=== PATIENT | male | born 1950 | race African-American/Black ===

== ENCOUNTER 2020-04-16 15:35 | Inpatient (IN) | payer OTHER, MEDICARE ==
[~2020-04-16 15:35] MED LIST: Iopamidol-370 76% 500 ML 1 ML ONE; Sodium Bicarb 50 MEQ/50 ML Abboject 8.4% SYRINGE ONE
[2020-04-16] MEDS ORDERED: Cefepime 2 GM VIAL ONE (15:57)
[2020-04-16 16:00] LABS: Actual Bicarbonate (HCO3a) 41.9 mEq/L (22-28); Analyzer IN Cardio ER; Base Excess (BEa) 6.8 mEq/L (-2.0 to +3.0); Calcium, Ionized (arterial) 1.26 mmol/L (1.12-1.30); Carboxyhemoglobin (COHb) 0.9 gm% (0.0-3.0); Hemoglobin (Hb) 14.5 g/dL (14.0-18.0); O2 Tension (PaO2), arterial 77.1 mmHg (> 80.0); Potassium - ABG Lab 4.04 mmol/L (3.70-5.30)
[2020-04-16 16:16] LABS: #Basophils 0.1 thou/uL (0.0-0.2); #Lymphocytes 1.4 thou/uL (1.20-3.40); #Monocytes 0.8 thou/uL (0.11-0.59); #Neutrophils 6.1 thou/uL (1.40-6.50); %Basophils 1.6 % (0.0-1.0); %Eosinophils 0.1 % (0.0-10.0); %Lymphocytes 16.8 % (21.0-51.0); %Monocytes 9.5 % (0.0-10.0); %Neutrophils 71.9 % (42.0-75.0); Hemoglobin 14.3 g/dL (14.0-18.0); Mean Corpuscular HGB CONC 30.2 g/dL (32.0-36.0); Mean Corpuscular Hemoglobin 29.4 pg (27.0-31.0); Mean Corpuscular Volume 97.2 fL (78.0-98.0); Mean Platelet Volume 10.4 fL (7.4-10.4); Platelet Count 194 thou/uL (130-400); RBC Distribution Width 12.4 % (11.5-14.5); Red Blood Cell (RBC) Count 4.88 mill/uL (4.70-6.10); White Blood Cell (WBC) Count 8.5 thou/uL (4.8-10.8)
[2020-04-16 16:24] LABS: Prothrombin Time 13.5 sec (12.0-14.7)
--- NOTE | 2020-04-16 16:24 | RAD ---
Chest one view HISTORY: Altered mental status. FINDINGS: Cardiac silhouette is magnified by projection. Pulmonary vasculature is unremarkable. Patient is slightly rotated leftward. Oval density projecting over the left apex correlates with the first costochondral junction. No confluent airspace consolidation or evidence of pneumothorax. IMPRESSION : No abnormalities are demonstrated.
[2020-04-16] MEDS ORDERED: Ketamine 50 MG/ML (10ML VIAL) ONE (16:25)
[2020-04-16] MEDS ORDERED: risperiDONE 1 MG TAB ONE (16:25)
[2020-04-16 16:26] LABS: D-Dimer Test 0.5 *mcg/mL (0.27-0.43)
[2020-04-16] MEDS ORDERED: Rocuronium Bromide 10 MG/ML (10ML VIAL) ONE ×2 (16:26→16:30)
[2020-04-16] MEDS ORDERED: Norepinephrine 8 MG/0.9% NS 250 ML ONE ×2 (16:26→16:46)
[2020-04-16] MEDS ORDERED: EPINEPHrine 1 MG/10 ML Abboject SYRINGE ONE ×2 (16:28→16:29)
[2020-04-16] MEDS ORDERED: Rocuronium Bromide 50 MG/5 ML VIAL ONE (16:28)
[2020-04-16 16:31] LABS: Acetaminophen Less than 6.0 mcg/mL (10.0-30.0); Alcohol Less than 10 mg/dL (Less than 10); Magnesium 1.9 mg/dL (1.6-2.6); Salicylate Less than 8.0 mg/dL (15.0-30.0)
[2020-04-16 16:33] LABS: ALT (SGPT) 31 U/L (8-55); AST (SGOT) 38 U/L (5-34); Albumin 4.1 g/dL (3.5-5.0); Alkaline Phosphatase 57 U/L (40-110); BUN (Urea Nitrogen) 22 mg/dL (8.4-25.7); Bilirubin, Total 0.9 mg/dL (0.2-1.2); Calc. Creatinine Clearance 0 mL/min (70-130); Calcium 9.5 mg/dL (7.8-10.44); Estimated GFR-MDRD Greater than 90; Globulin 2.8 g/dL (2.4-3.5); Glucose 129 mg/dL (70-105); Lipase 50 U/L (8-78); Protein, Total 6.9 g/dL (6.0-8.3)
[2020-04-16 16:42] LABS: Anion Gap 15 mmol/L (10-20); Carbon Dioxide 39 mmol/L (22-29); Chloride 90 mmol/L (98-107); Potassium 4.1 mmol/L (3.5-5.1); Sodium 140 mmol/L (136-145)
[2020-04-16] MEDS ORDERED: Fentanyl 100 MCG/2 ML VIAL ONE (16:42)
[2020-04-16] MEDS ORDERED: fentaNYL Citrate/PF 2,000 MCG in Sodium Chloride 0.9% 60 ML IV SCH (16:51)
[2020-04-16 17:01] LABS: CO2 Tension 138.3 mmHg (35.0-45.0); Puncture Site RRAD
[2020-04-16 17:04] LABS: Bilirubin Moderate (Negative); Blood, Urine Moderate (Negative); Glucose, Urine (Dipstick) Negative (Negative); Ketone, Urine 15 mg/dL (Negative); Leukocyte Negative (Negative); Nitrite Negative (Negative); Protein, Urine (Dipstick) 100 mg/dL (Neg-Trace); Urobilinogen 0.2 mg/dL (Less than 2); pH, Urine 5.5 (5.0-9.0)
[2020-04-16 17:06] LABS: CKMB 29.8 ng/mL (0-6.6)
[2020-04-16 17:10] LABS: Clarity Hazy (Clear)
[2020-04-16 17:12] LABS: Specific Gravity, Urine 1.027 (1.002-1.036)
[2020-04-16 17:13] LABS: Bacteria/HPF Rare-Few HPF (None Seen); Squamous Epithelial 0-3 HPF (0-3); WBC/HPF 0-3 HPF (0-3)
[2020-04-16] MEDS ORDERED: Vancomycin 1 GM/200 ML BAG ONE (17:20)
[2020-04-16 17:28] LABS: Amphetamine Not Detected (NotDetected); Barbiturates Screen Not Detected (NotDetected); Benzodiazepine Screen Not Detected (NotDetected); Cocaine Metabolite Screen Not Detected (NotDetected); Medtox Control Line Valid? VALID (VALID); Medtox Reader # READER 4; Methadone Not Detected (NotDetected); Methamphetamine Not Detected (NotDetected); Opiate Screen Not Detected (NotDetected); Oxycodone Screen Not Detected (NotDetected); Phencyclidine (PCP) Not Detected (NotDetected); THC/Cannabinoid Screen Not Detected (NotDetected); Tricyclic Screen Not Detected (NotDetected)
[2020-04-16 18:47] LABS: SARS-CoV-2 NAA Rapid Test Not Detected (NotDetected)
--- NOTE | 2020-04-16 18:54 | CT ---
CT PULMONARY ANGIOGRAM WITH IV CONTRAST AND 3-D POSTPROCESSING: HISTORY:Altered mental status, hypotension, hypercapnic FINDINGS: There is good contrast opacification of the pulmonary arterial vasculature without filling defects to suggest pulmonary embolism. The thoracic aorta is well opacified without aneurysm or dissection. No pleural or pericardial effusions are seen. There are endotracheal and nasogastric tubes in place. No pneumothoraces, focal areas of consolidation or lung nodules are noted. There are minimal dependen t changes at the posterior lung bases. There are degenerative changes in the spine. IMPRESSION: No CT evidence of pulmonary embolism.
--- NOTE | 2020-04-16 18:54 | RAD ---
XR Chest 1 View Portable HISTORY: Respiratory failure COMPARISON: Earlier exam of same date FINDINGS: There is been interval placement of an endotracheal tube with tip at the level of the clavi cular heads. A nasogastric tube is seen with tip in the stomach. Tip of a right internal jugular central venous catheter is in the projection of the right atrium. The heart size normal. No lobar consolidation, pneumothoraces or pleural effusions are identified. Th ere are degenerative changes in the spine. IMPRESSION: No radiographic evidence of acute cardiopulmonary process.
[2020-04-16] MEDS ORDERED: Lorazepam 2 MG/ML VIAL ONE ×2 (18:55→21:31)
[2020-04-16] MEDS ORDERED: Dexamethasone 10 MG/ML VIAL ONE (18:55)
--- NOTE | 2020-04-16 19:03 | CT ---
CTA HEAD WITH AND WITHOUT CONTRAST: 04/16/20 Axial tomograms obtained through the head without IV contrast. This is followed by CTA of the head [facility] angio protocol with multiplanar reconstruction and 3D postprocessing. INDICATION: Altered mental status. CT HEAD WITHOUT CONTRAST: Ventricles have normal size and position. There is no evidence of intracranial mass, hemorrhage or in farct. Sinuses and mastoids are clear. IMPRESSION: No acute finding. CTA HEAD: The intracranial internal carotid arteries are patent. Anterior cerebral arteries are patent. Middle cerebral arteries appear patent and symmetric. Basilar arteries patent. Posterior cerebral arteries a re patent and symmetric. The visualized vertebral arteries are patent. IMPRESSION: Unremarkable CTA of head. CTA NECK: INDICATIONS: Altered mental status. Axial tomograms obtained with multiplanar reconstruction and 3D postprocessing. FINDINGS: Common carotid arteries are patent and symmetric. Carotid bifurcation is patent with minimal atherosclerotic change. There is no evidence of internal c arotid artery stenosis. Vertebral arteries are patent and symmetric. Soft tissues reveal mildly heterogeneous and enlarged thyroid gland. There are secretions seen in the posterior oropharynx and hypopharynx surrounding the NG tube. IMPRESSION: Unremarkable CTA neck. POS: AGW
[2020-04-16 19:22] LABS: Actual Bicarbonate (HCO3a) 32.6 mEq/L (22-28); Analyzer IN Cardio ER; Base Excess (BEa) 12.6 mEq/L (-2.0 to +3.0); CO2 Tension 27.9 mmHg (35.0-45.0); Calcium, Ionized (arterial) 1.04 mmol/L (1.12-1.30); Carboxyhemoglobin (COHb) 0.4 gm% (0.0-3.0); Hemoglobin (Hb) 13.7 g/dL (14.0-18.0); Potassium - ABG Lab 3.42 mmol/L (3.70-5.30)
[2020-04-16 19:25] LABS: O2 Tension (PaO2), arterial 55.3 mmHg (> 80.0); pH, Arterial 7.69 (7.35-7.45)
[2020-04-16 19:26] LABS: ALV-art Gradient 266.325 (0-20); Puncture Site RR
--- NOTE | 2020-04-16 19:38 | PDOC.HHP ---
Hospitalist HPI - History of Present Illness unresponsive+ History of Present Illness: This is a 69 year old male patient with past medical history of diabetes who presented to the ER after being found unresponsive. The patient was at work when he was found slumped over in his chair. They called the ambulance. When EMS arrived, the patient was found to have an oxygen saturation of 70% on room air and blood pressure of 100 systolic. EMS tried to convince the patient to come to the ER for over two hours and he refused multiple times. Eventually he agreed and was placed on non-rebreather. When the patient came to the ER, apparently he was talking some and following some commands and his oxygen saturation was 100% on nasal cannula. ABG showed pH 7.1, and pCO2 of 130. He was placed on BIPAP but quickly decompensated and his blood pressure dropped to 60/40. He was given 30 cc/kg bolus of fluids, 2L bolus of normal saline, multiple boluses of epinephrine (total of 200 mg), 1 amp of bicarb, 10 of IV decadron and was eventually intubated. Labs showed normal lactate, indeterminate troponin, normal TSH, normal UA. Chest X ray was normal, CTA showed no PE, CTA head/neck showed no stenosis. COVID swab negative Attempted calling family for further history but no response. Hospitalist ROS - Review of Systems ROS unobtainable: due to endotracheal tube Hospitalist History - Past Medical History Endocrine: reports: Diabetes - Past Surgical History Other Surgical History: unknown - Family History Other Family History: unknown - Social History Smoking Status: Smoker, status unknown - Exam General - other findings: intubated, sedated Eye: PERRL, anicteric sclera ENT: normocephalic atraumatic, no oropharyngeal lesions Neck: no JVD Heart: RRR, no murmur, no gallops, no rubs Respiratory: no rales, no ronchi Respiratory - other findings: dimnished breath sounds bilaterally Gastrointestinal: soft, non-tender, non-distended, normal bowel sounds Extremities: no cyanosis, no clubbing, 2+ LE edema Skin: normal turgor, no lesions, no rashes Skin - other findings: warm extremities Neurological: cranial nerve grossly intact, normal sensation to touch, no focal deficits, no new deficit Musculoskeletal: normal tone, normal strength, no muscle wasting Psychiatric: normal affect, normal behavior, A&O x 3 Hospitalist Results - Labs Result Diagrams: 04/16/20 16:02 04/16/20 16:02 Lab results: WBC 8.5 thou/uL (4.8-10.8) 04/16/20 16:02 Hgb 14.3 g/dL (14.0-18.0) 04/16/20 16:02 Hct 47.4 % (42.0-52.0) 04/16/20 16:02 MCV 97.2 fL (78.0-98.0) 04/16/20 16:02 Plt Count 194 thou/uL (130-400) 04/16/20 16:02 Neutrophils % 71.9 % (42.0-75.0) 04/16/20 16:02 ABG pH 7.69 (7.35-7.45) H* 04/16/20 19:20 ABG pCO2 27.9 mmHg (35.0-45.0) L 04/16/20 19: ABG pO2 55.3 mmHg (> 80.0) L* 04/16/20 19:20 Sodium 140 mmol/L (136-145) 04/16/20 16:02 Potassium 4.1 mmol/L (3.5-5.1) 04/16/20 16:02 Chloride 90 mmol/L (98-107) L 04/16/20 16:02 Carbon Dioxide 39 mmol/L (22-29) H 04/16/20 16:02 BUN 22 mg/dL (8.4-25.7) 04/16/20 16:02 Creatinine 0.82 mg/dL (0.7-1.3) 04/16/20 16:02 Glucose 129 mg/dL (70-105) H 04/16/20 16:02 Lactic Acid 1.5 mmol/L (0.5-2.2) 04/16/20 16:02 Calcium 9.5 mg/dL (7.8-10.44) 04/16/20 16:02 Total Bilirubin 0.9 mg/dL (0.2-1.2) 04/16/20 16:02 AST 38 U/L (5-34) H 04/16/20 16:02 ALT 31 U/L (8-55) 04/16/20 16:02 Alkaline Phosphatase 57 U/L (40-110) 04/16/20 16:02 CK-MB (CK-2) 29.8 ng/mL (0-6.6) H* 04/16/20 16:02 Troponin I 0.040 ng/mL (< 0.028) H 04/16/20 16:02 B-Natriuretic Peptide 34.7 pg/mL (0-100) 04/16/20 16:02 Serum Total Protein 6.9 g/dL (6.0-8.3) 04/16/20 16:02 Albumin 4.1 g/dL (3.5-5.0) 04/16/20 16:02 Lipase 50 U/L (8-78) 04/16/20 16:02 Urine Ketones 15 mg/dL (Negative) A 04/16/20 16:23 Urine Blood Moderate (Negative) A 04/16/20 16:23 Urine Nitrite Negative (Negative) 04/16/20 16:23 Ur Leukocyte Esterase Negative (Negative) 04/16/20 16:23 Urine RBC 4-6 HPF (0-3) A 04/16/20 16:23 Urine WBC 0-3 HPF (0-3) 04/16/20 16:23 Ur Squamous Epith Cells 0-3 HPF (0-3) 04/16/20 16:23 Urine Bacteria Rare-Few HPF (None Seen) 04/16/20 16:23 - EKG Interpretation EKG: sinus tachycardia, bundle branch block Hospitalist H&P A/P - Plan Plan: This is a 69 year old male with unknown past medical history except diabetes who was brought in after he was found slumped over at work. He was found to be hypercapneic and hypotensive and required intubation Acute hypoxic/hypercapneic failure - possibly septic shock unknown source vs undiagnosed COPD exacerbation vs NSTEMI - patient was found slumped at work. Found to have pH 7.1, PCO2 130. He was hypotensive as well. He is s/p intubation - blood cultures sent, continue vanc and zosyn empirically - add hydrocortisone 50 mg IV q6 - repeat ABG shows pH 7.69, PCO2 of 27. Respiratory therapist has decreased rate on the vent from 24 to 13. Plan to repeat ABG in two hours Acute encephalopathy - likely due to acidosis - check CT head - CTA head and neck unresponsive Possible NSTEMI - troponin elevated at 0.040, with CKMB 29. Will continue to trend troponin - obtain ECHO - I will order one dose aspirin and statin - consider cardiology consult Type II diabetes - fingersticks q6 hours - insulin sliding scale DVT prophylaxis: enoxaparin (assuming normal CT head) Code status: presume full code
[2020-04-16] MEDS ORDERED: Aspirin 300 MG Suppository PR SCH (20:00)
[2020-04-16] MEDS ORDERED: Norepinephrine 8 MG/0.9% NS 250 ML IVPB SCH (20:00)
[2020-04-16] MEDS ORDERED: Dextrose 5% in Water 1,000 ML IV PRN (20:03)
[2020-04-16] MEDS ORDERED: Dextrose 50% Abboject 50 ML SYRINGE SLOW IVP PRN (20:03)
[2020-04-16] MEDS ORDERED: Vancomycin 1 GM in Premix Bag 1 BAG IVPB SCH (21:00)
[2020-04-16] MEDS ORDERED: DISCONTINUE PREVIOUS NARCOTIC PAIN MEDICATIONS AND BENZODIAZEPINES FS SCH (21:36)
[2020-04-16] MEDS ORDERED: Lorazepam 2 MG/ML VIAL SLOW IVP PRN (21:36)
[2020-04-16] MEDS ORDERED: Propofol BOLUS 1,000 MG/100 ML VIAL IV PRN (21:36)
[2020-04-16] MEDS ORDERED: Fentanyl BOLUS 250 ML IVPB PRN (21:36)
[2020-04-16] MEDS ORDERED: Morphine 2 MG/ML VIAL SLOW IVP PRN (21:36)
[2020-04-16] MEDS: Sodium Chloride 0.9% 1,000 ML IV SCH (21:52)
[2020-04-16] MEDS: Hydrocortisone Sod Succ/PF 100 mg/2 ml Vial IVP SCH (22:14)
[2020-04-16] MEDS: Atorvastatin Calcium 40 MG TAB PO SCH (22:15)
[2020-04-16 23:04] LABS: Actual Bicarbonate (HCO3a) 26.2 mEq/L (22-28); Base Excess (BEa) 5.4 mEq/L (-2.0 to +3.0); CO2 Tension 27.9 mmHg (35.0-45.0); Calcium, Ionized (arterial) 1.11 mmol/L (1.12-1.30); Carboxyhemoglobin (COHb) 0.2 gm% (0.0-3.0); O2 Tension (PaO2), arterial 120.5 mmHg (> 80.0); Potassium - ABG Lab 3.63 mmol/L (3.70-5.30)
[2020-04-16 23:05] LABS: ALV-art Gradient 201.125 (0-20); Puncture Site RR; pH, Arterial 7.59 (7.35-7.45)
[2020-04-16 23:08] LABS: Troponin I 0.035 ng/mL (< 0.028)
[2020-04-17] MEDS: Piperacillin/Tazobactam 3.375 GM in Sodium Chloride 0.9% 100 ML IVPB SCH ×5 (00:12→23:13)
[2020-04-17] MEDS ORDERED: fentaNYL Citrate/PF 2,000 MCG in Sodium Chloride 0.9% 60 ML IV SCH (00:30)
[2020-04-17] MEDS: Hydrocortisone Sod Succ/PF 100 mg/2 ml Vial IVP SCH ×4 (02:20→21:31)
[2020-04-17] MEDS: Vancomycin 1 GM in Premix Bag 1 BAG IVPB SCH ×2 (04:17→17:27)
[2020-04-17 04:30] LABS: Hemoglobin 12.8 g/dL (14.0-18.0); Mean Corpuscular HGB CONC 31.2 g/dL (32.0-36.0); Mean Corpuscular Hemoglobin 29.7 pg (27.0-31.0); Mean Platelet Volume 9.6 fL (7.4-10.4); Platelet Count 182 thou/uL (130-400); RBC Distribution Width 12.4 % (11.5-14.5); Red Blood Cell (RBC) Count 4.32 mill/uL (4.70-6.10); White Blood Cell (WBC) Count 8.9 thou/uL (4.8-10.8)
[2020-04-17 04:52] LABS: Anion Gap 18 mmol/L (10-20); BUN (Urea Nitrogen) 18 mg/dL (8.4-25.7); Calc. Creatinine Clearance 89 mL/min (70-130); Calcium 8.6 mg/dL (7.8-10.44); Carbon Dioxide 32 mmol/L (23-31); Chloride 97 mmol/L (98-107); Estimated GFR-MDRD Greater than 90; Glucose 153 mg/dL (80-115); Potassium 3.8 mmol/L (3.5-5.1); Sodium 143 mmol/L (136-145)
[2020-04-17 07:14] LABS: Actual Bicarbonate (HCO3a) 29.5 mEq/L (22-28); Analyzer IN Cardio ER; CO2 Tension 38.6 mmHg (35.0-45.0); Calcium, Ionized (arterial) 1.12 mmol/L (1.12-1.30); Carboxyhemoglobin (COHb) 0.2 gm% (0.0-3.0); Hemoglobin (Hb) 13.1 g/dL (14.0-18.0); O2 Tension (PaO2), arterial 86.6 mmHg (> 80.0); Potassium - ABG Lab 3.54 mmol/L (3.70-5.30)
[2020-04-17 07:15] LABS: Puncture Site RRA
[2020-04-17 08:39] LABS: Actual Bicarbonate (HCO3a) 28.8 mEq/L (22-28); Analyzer IN Cardio ER; Base Excess (BEa) 5.4 mEq/L (-2.0 to +3.0); CO2 Tension 37.8 mmHg (35.0-45.0); Calcium, Ionized (arterial) 1.11 mmol/L (1.12-1.30); Carboxyhemoglobin (COHb) 0.3 gm% (0.0-3.0); Hemoglobin (Hb) 13.3 g/dL (14.0-18.0); O2 Tension (PaO2), arterial 89.9 mmHg (> 80.0); Potassium - ABG Lab 3.63 mmol/L (3.70-5.30)
[2020-04-17 08:53] LABS: Puncture Site RRA
[2020-04-17] MEDS ORDERED: Prevnar 13-Val Conj/PF 0.5 ML SYRINGE IM ONE (09:00)
[2020-04-17] MEDS: Sodium Chloride 0.9% 1,000 ML IV SCH ×2 (09:42→16:42)
--- NOTE | 2020-04-17 14:13 | PDOC.HOSPP ---
- Subjective Encounter Date: 04/17/20 Encounter Time: 11:30 Subjective: Patient was asleep upon entering the room and during physical exam. He was able to be aroused after the exam, and he answered yes or no questions by nodding or shaking his head. He seems to be alert and oriented. He denies any pain or discomfort, even with the endotracheal tube in place. Per nursing staff, they placed him on CPAP trial but he desaturated and was too drowsy so it was decided no to extubate. Patient's blood pressure also dropped to 90 systolic when levofed was reduced. Patient states he has never smoked. Has no history of lung or heart problems to his knowledge According to the , the patient was having progressive troubles with movement and appetite. He has left sided foot drop, which often causes him to fall, so he has been using a walker to get around. He additionally has "weak hands," has lost 28 lbs since October, and has 4 broken vertebrae. Over the last month, the patient has also experienced SOB, TIBURCIO, weight loss, chest congestion, abdominal pain, constipation, and one episode of vomiting on Tuesday (04/15). When asked if there was anything that precipitated these symptoms, Ms. Davison stated that one month ago the patient moved in with her. This move has made his drive to work longer, since he is now living in [place] instead of [place]. She also stated that the patient's HTN medications were changed from amlodipine to metoprolol on (04/10). The morning of Mr. Davison's hospitalization, Ms. Davison's son noticed that "something was off" with the patient. Ms. Davison received a call later in the day from the patient' s work stating that he was unresponsive and slumped over his desk. At this time , EMS was called. There was no report of fever, night sweats, acid reflux, cough, and hemoptysis. His only previous history was diabetes. He never smoked. He has had chronic back pain. Meds prior to admission: -ASA 81 mg PO daily, Lisinopril 40 mg PO, Metformin 1000 mg BID, Tizanidine 1 tab at night, Rosuvastatin, unknown dosage Fx: significant for prostatic, colonic, and pancreatic CA,brother from [place] in his 40s, unsure which type - Objective Vital Signs & Weight: Vital Signs (12 hours) Temp Pulse Resp BP Pulse Ox 04/17/20 12:00 10 L 04/17/20 11:03 87 124/70 04/17/20 11:00 98.1 F 04/17/20 10:00 8 L 04/17/20 08:28 81 121/73 04/17/20 08:00 10 L 100 04/17/20 06:00 12 04/17/20 04:00 98.9 F 10 L 04/17/20 03:33 78 Weight Admit Weight 151 lb 3.794 oz Weight 151 lb 3.794 oz Most Recent Monitor Data Heart Rate from ECG 79 NIBP 116/68 NIBP BP-Mean 74 Respiration from ECG 10 SpO2 99 I&O: 04/16/20 04/17/20 04/18/20 06:59 06:59 06:59 Intake Total 1305.3 100 Output Total 575 120 Balance 730.3 -20 Result Diagrams: 04/17/20 04:17 04/17/20 04:17 Additional Labs: Accuchecks 04/17/20 04/17/20 04/16/20 12:35 06:05 23:58 POC Glucose 168 H 151 H 123 H 04/16/20 04/16/20 22:40 20:44 POC Glucose 142 H 121 H Hospitalist ROS - Review of Systems ROS unobtainable: due to endotracheal tube Constitutional: reports: other (denies pain) Cardiovascular: denies: chest pain - Medication Medications: Active Medications Generic Name Dose Route Start Last Admin Trade Name Freq PRN Reason Stop Dose Admin Atorvastatin Calcium 40 mg 04/16/20 21:00 04/16/20 22:15 Lipitor PO 40 mg HS JUAN Administration Hydrocortisone Sodium Succinate 50 mg 04/16/20 20:00 04/17/20 14:10 Solu-Cortef IVP 50 mg 0200,0800,1400,2000 JUAN Administration Piperacillin Sod/Tazobactam 100 mls @ 200 mls/hr 04/16/20 23:59 04/17/20 12: 40 Sod 3.375 gm/ Sodium Chloride IVPB 100 mls Q6HR JUAN Administration Vancomycin HCl 1 gm/ Device 200 mls @ 200 mls/hr 04/17/20 05:00 08/06/20 04: 17 IVPB 200 mls 0500,1700 JUAN Administration Sodium Chloride 1,000 mls @ 100 mls/hr 04/16/20 20:00 04/17/20 09:42 Normal Saline 0.9% IV 1,000 mls .Q10H JUAN Administration Norepinephrine Bitartrate 250 mls @ 0 mls/hr 04/16/20 20:00 04/17/20 06:58 Levophed IVPB 250 mls INF JUAN Administration Protocol Titrate - Exam General Appearance: NAD General - other findings: intubated. He follows all commands Eye: anicteric sclera ENT: normocephalic atraumatic (intubated) Neck: supple, symmetric Heart: RRR, no murmur, no gallops, no rubs Respiratory: CTAB, no wheezes, no rales, no ronchi, normal chest expansion, no tachypnea Gastrointestinal: soft, non-distended Extremities: no cyanosis, no clubbing, 2+ LE edema (bilaterally in lower extremities) Skin: normal turgor, no lesions, no rashes Neurological: cranial nerve grossly intact, normal sensation to touch, no focal deficits, no new deficit Psychiatric - other findings: Seemed to understand that he was hospitalized Hosp A/P - Plan Echo - mild mitral regurg, mild tricuspid regurg, normal EF at 60-65% This is a 69 year old male with past medical history of diabetes, who presented to the ER with acute onset respiatory failure ECHO: EF 60-65%, mild MR, mild Tr Chest X ray: normal CTA chest: no PE CTA head/neck: no stenosis CT brain: no hemorrhage This is a 69 year old male with unknown past medical history except diabetes who was brought in after he was found slumped over at work. He was found to be hypercapneic and hypotensive and required intubation Acute hypoxic/hypercapneic failure - possibly septic shock unknown source vs undiagnosed COPD exacerbation vs neuromuscular disease/autoimmune disease - patient was found slumped at work. Found to have pH 7.1, PCO2 130. He was hypotensive as well. He is s/p intubation - blood cultures sent, continue vanc and zosyn empirically - continue hydrocortisone 50 mg IV q6 - repeat ABG shows pH 7.69, PCO2 of 27. Respiratory therapist has decreased rate again on the ventilator. Pulm consult appreciated. - I will obtain an PITO level given his history of joint pain and swelling. Acute encephalopathy - likely due to acidosis - CT head normal , CTA head and neck no stenosis Metabolic alkalosis - possibly from dehydration vs bicarb received in the ER - continue IV fluids Possible NSTEMI - troponin elevated at 0.040, with CKMB 29. Will continue to trend troponin -ECHO unremarkable - continue aspirin and statin Type II diabetes - fingersticks q6 hours - insulin sliding scale Weight loss - CT chest shows no evidence of cance - obtain CT abdomen when stable Anemia - Hb 12. Likely dilutional from fluids
[2020-04-17 16:24] LABS: Vancomycin, Trough 11.1 ug/mL
[2020-04-17] MEDS: Propofol 1,000 MG/100 ML VIAL IV PRN (16:43)
--- NOTE | 2020-04-17 17:05 | PQF ---
Q55 2019 [facility] Updated: CLINICAL DOCUMENTATION CLARIFICATION FORM: Dear Dr. JUAN C MCDANIEL Date: 04-17-20 Please exercise your independent, professional judgment in responding to the clarification form. Clinical indicators are provided on the bottom of this form for your review. Please check appropriate box(es) to clarify if the following diagnosis has been ruled in our ruled out: SEPTIC SHOCK [ X ] Ruled in diagnosis [ ] Continue to treat [ ] Resolved [ ] Ruled out diagnosis [ ] Other diagnosis [ ] Unable to determine In addition, please specify: Present on Admission (POA): [X ] Yes [ ] No [ ] Unable to determine For continuity of documentation, please document condition throughout progress notes and discharge summary. Thank You. To be completed by CDI/Coding staff for physician review: CLINICAL INDICATORS - SIGNS / SYMPTOMS / LABS / RESULTS AND LOCATION IN MR: ER DX: ALTERED MENTAL STATUS, ELEVATED TROPONIN, HYPERCAPNIC RESPIRATORY FAILURE, HYPOXIC RESPIRATORY FAILURE, METABOLIC ACIDOSIS, RESPIRATORY ACIDOSIS WITH METABOLIC ALKALOSIS, SEPSIS, SEPTIC SHOCK H&P 04-16-20: ACUTE HYPOXIC/HYPERCAPNIC FAILURE-POSSIBLE SEPTIC SHOCK UNK SOURCE VS UNDX COPD EXACERBATION VS NSTEMI, ACUTE ENCEPHALOPATHY, POSSIBLE NSTEMI PULSE ER: 105, 131, 111, 109, 110 BP ER: 63/39, 62/35, 77/49, 73/51, 57/36, 65/41, 64/40 RR ER: 24, 24, 23, BIPAP, VENTILATOR RISK FACTORS / RESULTS AND LOCATION IN MR: ER NOTES 04-16-20: PT BECAME APNEIC WAS INTUBATED FOR APNEA AND DURING THAT TIME HAD SEVERAL EPISODES OF HYPOTENSION, TREATED WITH EPINEPHRINE AND BICARB, 2L OF FLUIDS WERE GIVEN USED TO PRESERVE BLOOD PRESSURE ER DX: ALTERED MENTAL STATUS, ELEVATED TROPONIN, HYPERCAPNIC RESPIRATORY FAILURE, HYPOXIC RESPIRATORY FAILURE, METABOLIC ACIDOSIS, RESPIRATORY ACIDOSIS WITH METABOLIC ALKALOSIS, SEPSIS, SEPTIC SHOCK TREATMENTS / RESULTS AND LOCATION IN MR: ER NOTES 04-16-20: NS IVF, VANCOMYCIN IV, CEFEPIME IV CDS Signature: Nikole Simmons Phone #: [phone] Date: 04-17-20 This is a permanent part of the Medical Record [facility]
--- NOTE | 2020-04-17 17:25 | PQF ---
Q22 2018 [facility] Updated: CLINICAL DOCUMENTATION CLARIFICATION FORM: Dear Dr. JUAN C MCDANIEL Date: 04-17-20 Please exercise your independent, professional judgment in responding to the clarification form. Clinical indicators are provided on the bottom of this form for your review. Please check appropriate box(es): [ X ] Encephalopathy: Type: [ X ] Acute [ ] Subacute [ ] Chronic Etiology: [ ] Metabolic [ ] Toxic [ ] Hypoxic [ ] Septic [ ] Other (please specify) from stroke and tumor [ ] Transient Alteration of Awareness [ ] Other diagnosis [ ] Unable to determine In addition, please specify: Present on Admission (POA): [ X ] Yes [ ] No [ ] Unable to determine For continuity of documentation, please document condition throughout progress notes and discharge summary. Thank You. To be completed by CDI/Coding staff for physician review: CLINICAL INDICATORS - SIGNS / SYMPTOMS / LABS / RESULTS AND LOCATION IN EMR: H&P 04-16-20: ACUTE HYPOXIC/HYPERCAPNIC FAILURE- POSSIBLE SEPTIC SHOCK UNKNOWN SOURCE VS UNDIAGNOSED COPD EXACERBATION ACUTE ENCEPHALOPATHY- LIKELY DUE TO ACIDOSIS, POSSIBLE NSTEMI, DM 2 RISK FACTORS / RESULTS AND LOCATION IN EMR: H&P 04-16-20: ACUTE HYPOXIC/HYPERCAPNIC FAILURE- POSSIBLE SEPTIC SHOCK UNKNOWN SOURCE VS UNDIAGNOSED COPD EXACERBATION ACUTE ENCEPHALOPATHY- LIKELY DUE TO ACIDOSIS, POSSIBLE NSTEMI, DM 2 TREATMENTS / RESULTS AND LOCATION IN EMR: ER NOTES 04-16-20: NS IVF, VANCOMYCIN IV, CEFEPIME IV CDS Signature: Nikole Simmons Phone #: [phone] Date/Time: 04-17-20 This is a permanent part of the Medical Record [facility]
[2020-04-17] MEDS: Atorvastatin Calcium 40 MG TAB PO SCH (21:31)
--- NOTE | 2020-04-18 01:59 | CON ---
DATE OF CONSULTATION: 04/17/2020 HISTORY OF PRESENT ILLNESS: Sudeep Davison is a 69-year-old male, who presented to the emergency room, poorly responsive with hypercarbia and subsequently was intubated. I was consulted to assist in his management. He is unable to give a history. There is no past medical history in the medical records. He reportedly has a history of diabetes. FAMILY HISTORY: Unknown. SOCIAL HISTORY: Unknown. REVIEW OF SYSTEMS: Not obtainable. PHYSICAL EXAMINATION: GENERAL: He will awaken. It is interesting to note that when he is asleep, he has David-Malik respiratory pattern (his echocardiogram was normal today). VITAL SIGNS: Heart rates in the 70s, respiratory rates in the teens, his FiO2 is 21%, and blood pressure 108/62. HEENT: Pupils are equal. Sclerae are anicteric. NECK: Supple. LUNGS: Remarkable, but no wheezes or crackles. HEART: Regular rhythm. No S3. ABDOMEN: Soft and nontender. EXTREMITIES: Without clubbing, cyanosis, or edema. LABORATORY DATA: White count 8.9, hemoglobin 12.8, platelets 182,000. Electrolytes are unremarkable. Bicarb on presentation was 39, suggesting that he has been hypoventilating for a while. His first blood gas showed a pH of 7.1, CO2 of 138 , PO2 of 77, again suggesting that he had been hypoventilating. He is not obese. IMPRESSION: Hypoventilation of unclear etiology. Most likely diagnosis would be that he would have severe obstructive lung disease, but he does not have any clinical evidence of that. His expiratory phase is short. He has David-Malik respiratory pattern, which would be an argument that he might have some cardiomyopathy, but the echocardiogram does not bear this out. CT scan does not show bullous disease. We have decreased his ventilatory support significantly during the day today. We probably should stay away from any long-acting sedative drugs in him and if sedatives are needed tonight, use Precedex. CRITICAL CARE TIME: 30 minutes. Job ID: [id number] MTDD
[2020-04-18] MEDS: Sodium Chloride 0.9% 1,000 ML IV SCH ×4 (02:00→17:00)
[2020-04-18] MEDS: Hydrocortisone Sod Succ/PF 100 mg/2 ml Vial IVP SCH ×4 (02:01→19:17)
[2020-04-18 04:31] LABS: Hemoglobin 11.4 g/dL (14.0-18.0); Mean Corpuscular HGB CONC 31.2 g/dL (32.0-36.0); Mean Corpuscular Hemoglobin 29.4 pg (27.0-31.0); Mean Corpuscular Volume 94.5 fL (78.0-98.0); Mean Platelet Volume 10.6 fL (7.4-10.4); Platelet Count 165 thou/uL (130-400); RBC Distribution Width 12.7 % (11.5-14.5); Red Blood Cell (RBC) Count 3.88 mill/uL (4.70-6.10); White Blood Cell (WBC) Count 14.4 thou/uL (4.8-10.8)
[2020-04-18] MEDS ORDERED: Vancomycin 1.5 GRAM/300 ML BAG 1.5 GM in Premix Bag 1 BAG IVPB SCH (05:00)
[2020-04-18 05:10] LABS: ALT (SGPT) 18 U/L (8-55); AST (SGOT) 18 U/L (5-34); Albumin 2.9 g/dL (3.4-4.8); Alkaline Phosphatase 40 U/L (40-110); Anion Gap 13 mmol/L (10-20); BUN (Urea Nitrogen) 15 mg/dL (8.4-25.7); Bilirubin, Total 0.9 mg/dL (0.2-1.2); Calc. Creatinine Clearance 85 mL/min (70-130); Calcium 7.9 mg/dL (7.8-10.44); Carbon Dioxide 34 mmol/L (23-31); Chloride 99 mmol/L (98-107); Estimated GFR-MDRD Greater than 90; Globulin 2.2 g/dL (2.4-3.5); Glucose 144 mg/dL (80-115); Potassium 2.8 mmol/L (3.5-5.1); Protein, Total 5.1 g/dL (5.8-8.1); Sodium 143 mmol/L (136-145)
[2020-04-18] MEDS: Piperacillin/Tazobactam 3.375 GM in Sodium Chloride 0.9% 100 ML IVPB SCH ×4 (05:25→23:22)
[2020-04-18] MEDS: Potassium Chloride 40 MEQ in Premix Bag 1 BAG IVPB SCH ×2 (05:25→08:30)
[2020-04-18] MEDS ORDERED: Electrolyte Replacement Protocol FS PRN (05:30)
[2020-04-18 05:54] LABS: Syphilis Antibody Nonreactive (Nonreactive); Syphilis Antibody Index 0.04 S/CO (<1.00 Non-Reactive)
[2020-04-18] MEDS ORDERED: Magnesium 2 GM/50 ML 2 GM in Premix Bag 1 BAG IVPB SCH (07:00)
[2020-04-18] MEDS: Propofol 1,000 MG/100 ML VIAL IV PRN ×2 (08:17→13:48)
--- NOTE | 2020-04-18 09:08 | PRG ---
DATE OF SERVICE: 04/18/2020 SUBJECTIVE: Sudeep Davison awakens quickly. OBJECTIVE: VITAL SIGNS: His heart rates in the 50s, blood pressure 109/65, and respiratory rates in the 20s. He was turned down to minimal ventilatory support with pressure support of 5, PEEP 5, and a rate of 4. He is examined multiple times early this morning. With time, his tidal volumes became smaller and smaller and his respiratory rate increased. His tidal volumes dropped to 125 to 100 mL with 5 of PEEP and 5 of pressure support. LUNGS: Clear. HEART: Regular rhythm. ABDOMEN: Soft. Turning back to a rate of 8, turned his pressure support back to 10. LABORATORY STUDIES: White count 14.4, hemoglobin 11.4, and platelets 165. Sodium 143, potassium 2.8, chloride 99, bicarb 34, BUN 15, and creatinine 0.84. There is no blood gas today. IMPRESSION AND PLAN: Respiratory failure ? secondary to neuromuscular problem ? myasthenia gravis. He does not have any lung disease. He has never been a smoker. Does not have a body habitus of somebody with obesity hypoventilation syndrome. There is no clear explanation for his hypoventilation other than perhaps neuromuscular cause. We will consult Neurology. His ejection fraction is normal. CRITICAL CARE TIME: 30 minutes. Job ID: [id number]
--- NOTE | 2020-04-18 12:51 | CON ---
NEUROLOGY CONSULTATION DATE OF CONSULTATION: 04/18/2020 REASON FOR CONSULTATION: Bilateral lower extremity weakness. HISTORY OF PRESENT ILLNESS: Mr. Davison is a 69-year-old male with medical history significant for diabetes, presented to the emergency room on 04/16/2020 with altered mental status. The patient was at work and was found slumped over his chair, and they called the ambulance and ecided to bring him to the emergency room for further evaluation. The patient was found to have an oxygen saturation of 70% on room air, and blood pressure was 100 systolic. The EMS tried to convince the patient to come to the emergency room for over 2 hours and he refused multiple times and eventually agreed and was placed on non-rebreather. When he arrived to the emergency room, he was following commands, and his oxygen was 100% on nasal cannula, but then his blood pressure dropped and he was eventually intubated. History was obtained from review of the medical records since the patient was intubated. There is a concern that has reported that he has bilateral lower extremity weakness since the last few weeks and is getting progressively worse, and he has difficulty in walking. Neurology was consulted for further evaluation. REVIEW OF SYSTEMS: Unobtainable due to endotracheal tube. PAST MEDICAL HISTORY: Diabetes. PAST SURGICAL HISTORY: No significant past surgical history. FAMILY HISTORY: No significant family history. SOCIAL HISTORY: Smoking; the patient is a smoker. There is no documented history of alcohol or illegal drug abuse. ALLERGIES: No known drug allergies PHYSICAL EXAMINATION: GENERAL: The patient was intubated and sedated. Sedation was turned off and then he was able to track and follow commands like squeezing fingers and he did track. CVS: Regular rate and rhythm. CHEST: Clear. ABDOMEN: Soft. NECK: Supple. EXTREMITIES: No cyanosis, but 2+ pitting edema in lower extremities. NEUROLOGIC: Mental status; the propofol was turned off for 20 minutes and he was awake. He nodded his head on yes and no questions. He was able to follow commands. Cranial nerves; pupils were 4 mm, round, and reactive to light. Face symmetric. Tongue midline. Moves neck in both directions. Extraocular movements intact. Hearing seems to be intact. Motor, muscle tone and bulk are normal. Moving all 4 extremities, upper extremities more than lower extremities. Strength 5/5 in the upper extremities, lower extremities 3+/5. Cerebellar did not cooperate with the exam. Gait deferred due to patient's safety reason. DATA REVIEWED: I reviewed the labs which were essentially unremarkable except EKG shows sinus tachycardia. ASSESSMENT AND PLAN: Mr. Sudeep Davison is a 69-year-old male who was brought for altered mental status His head CT was negative and CT of the head and neck was also negative. He came with respiratory failure, the exam is limited due to patient being on endotracheal tube. On limited exam, did not show any symptoms of myasthenia gravis. He is good strength in the upper extremities and no ptosis or bulbar weakness elicited on exam. . Lower extremity exam is also limited at this time. I would consider MRI of the thoracolumbar spine. Neuro checks every 4 hours. We will continue home medications. Continue medical management per primary team. We will continue to follow. He may need further work up as outpatient with EMG/NCS by outpatient neurologist if imaging is negative. Thank you for the consult. Job ID: [id number] MTDD
--- NOTE | 2020-04-18 13:30 | PDOC.HOSPP ---
- Subjective Encounter Date: 04/18/20 Encounter Time: 13:28 Subjective: THe patient is still intubated. He was not able to tolerate being weaned off the ventilator . His urine output is picking up . Neurology has been consulted today His levofed has been weaned off. He is still on IV fluids - Objective Vital Signs & Weight: Vital Signs (12 hours) Temp Pulse Resp BP Pulse Ox 04/18/20 12:00 8 L 04/18/20 11:00 97.8 F 04/18/20 10:54 54 L 107/68 04/18/20 10:00 11 L 04/18/20 08:11 57 L 109/65 04/18/20 08:00 12 04/18/20 07:44 99 04/18/20 07:00 97.9 F 04/18/20 06:00 8 L 04/18/20 04:00 98.9 F 8 L 04/18/20 03:27 86 04/18/20 02:00 12 Weight Admit Weight 151 lb 3.794 oz Weight 157 lb 13.616 oz Most Recent Monitor Data Heart Rate from ECG 56 NIBP 108/61 NIBP BP-Mean 74 Respiration from ECG 0 SpO2 100 I&O: 04/17/20 04/18/20 04/19/20 06:59 06:59 06:59 Intake Total 1305.3 3016.4 100 Output Total 575 1005 310 Balance 730.3 2011.4 -210 Result Diagrams: 04/18/20 03:30 04/18/20 03:30 Additional Labs: Accuchecks 04/18/20 04/18/20 04/17/20 12:50 00:32 16:06 POC Glucose 145 H 147 H 144 H Hospitalist ROS - Review of Systems ROS unobtainable: due to endotracheal tube - Medication Medications: Active Medications Generic Name Dose Route Start Last Admin Trade Name Freq PRN Reason Stop Dose Admin Atorvastatin Calcium 40 mg 04/16/20 21:00 04/17/20 21:31 Lipitor PO 40 mg HS JUAN Administration Hydrocortisone Sodium Succinate 50 mg 04/16/20 20:00 04/18/20 08:17 Solu-Cortef IVP 50 mg 0200,0800,1400,2000 JUAN Administration Piperacillin Sod/Tazobactam 100 mls @ 200 mls/hr 04/16/20 23:59 04/18/20 11: 20 Sod 3.375 gm/ Sodium Chloride IVPB 100 mls Q6HR JUAN Administration Sodium Chloride 1,000 mls @ 100 mls/hr 04/16/20 20:00 04/18/20 11:21 Normal Saline 0.9% IV 1,000 mls .Q10H JUAN Administration Norepinephrine Bitartrate 250 mls @ 0 mls/hr 04/16/20 20:00 04/17/20 06:58 Levophed IVPB 250 mls INF JUAN Administration Protocol Titrate Dexmedetomidine HCl 400 mcg/ 100 mls @ 0 mls/hr 04/17/20 17:15 04/18/20 01:08 Sodium Chloride IVPB 100 mls INF JUAN Administration Protocol Titrate Propofol 1,000 mg 04/16/20 21:36 04/18/20 08:17 Diprivan IV 05/16/20 21:36 1,000 mg INF PRN Administration TO ACHIEVE GOAL RASS Protocol Sodium Chloride 10 ml 04/18/20 09:00 04/18/20 08:17 Flush - Normal Saline IVF 10 ml Q12HR JUAN Administration - Exam General - other findings: intubated Eye: PERRL, anicteric sclera ENT: normocephalic atraumatic, no oropharyngeal lesions Neck: no JVD Heart: RRR, no murmur, no gallops, no rubs Respiratory: CTAB, no wheezes, no rales, no ronchi Gastrointestinal: soft, non-tender, non-distended, normal bowel sounds Extremities: no cyanosis, no clubbing, 2+ LE edema Skin: normal turgor, no lesions, no rashes Neurological: no new deficit Neurological - other findings: not following commands Hosp A/P - Plan Echo - mild mitral regurg, mild tricuspid regurg, normal EF at 60-65% This is a 69 year old male with past medical history of diabetes, who presented to the ER with acute onset respiatory failure ECHO: EF 60-65%, mild MR, mild Tr Chest X ray: normal CTA chest: no PE CTA head/neck: no stenosis CT brain: no hemorrhage This is a 69 year old male with unknown past medical history except diabetes who was brought in after he was found slumped over at work. He was found to be hypercapneic and hypotensive and required intubation Acute hypoxic/hypercapneic failure - possibly septic shock unknown source vs undiagnosed COPD exacerbation vs neuromuscular disease (like ALS?)/autoimmune disease - patient was found slumped at work. Found to have pH 7.1, PCO2 130. He was hypotensive as well. He is s/p intubation - blood cultures negative, UA+ but urine culture normal - discontinued vancomycin, continue zosyn. Continue IV steroids - syphilis negative. PITO pending. Neurology consulted due to possibility of neuromuscular disease or degenerative disease. Myasthenia antibodies ordered and pending Acute encephalopathy - likely due to acidosis - CT head normal , CTA head and neck no stenosis Metabolic alkalosis - improving, pH has improved to 7.5. Continue IV fluids Elevated troponin - troponin elevated at 0.040, with CKMB 29. Troponins downtrended -ECHO unremarkable - continue aspirin and statin Type II diabetes - fingersticks q6 hours - insulin sliding scale Weight loss - CT chest shows no evidence of cance - obtain CT abdomen when stable Anemia - Hb 12. Likely dilutional from fluids
[2020-04-18 13:51] LABS: Potassium 3.7 mmol/L (3.5-5.1)
[2020-04-18 15:04] LABS: ANA Symphony (Qualitative) Negative (Negative); ANA Symphony (Quantitative) 0.1 Ratio (< 0.7 Negative); dsDNA IgG Antibody Less than 0.5 IU/mL (<10 Negative)
[2020-04-18] MEDS: Atorvastatin Calcium 40 MG TAB PO SCH (20:33)
[2020-04-19] MEDS: Hydrocortisone Sod Succ/PF 100 mg/2 ml Vial IVP SCH ×4 (01:03→19:54)
[2020-04-19] MEDS: Propofol 1,000 MG/100 ML VIAL IV PRN ×3 (01:18→17:03)
[2020-04-19 04:29] LABS: Band 5 % (5-11); Hemoglobin 11.6 g/dL (14.0-18.0); Lymphocytes 4 % (21-51); MDiff Complete? YES; Mean Corpuscular HGB CONC 31.7 g/dL (32.0-36.0); Mean Corpuscular Hemoglobin 29.7 pg (27.0-31.0); Mean Corpuscular Volume 93.7 fL (78.0-98.0); Monocytes 6 % (0-10); Neutrophil 85 % (42-75); Platelet Count 154 thou/uL (130-400); Platelet Morphology Comment Appears Adequate; RBC Distribution Width 12.8 % (11.5-14.5); RBC Morphology Normal; Red Blood Cell (RBC) Count 3.92 mill/uL (4.70-6.10); White Blood Cell (WBC) Count 16.3 thou/uL (4.8-10.8)
[2020-04-19 04:40] LABS: Anion Gap 10 mmol/L (10-20); BUN (Urea Nitrogen) 16 mg/dL (8.4-25.7); Calc. Creatinine Clearance 95 mL/min (70-130); Calcium 8.1 mg/dL (7.8-10.44); Carbon Dioxide 34 mmol/L (23-31); Chloride 104 mmol/L (98-107); Estimated GFR-MDRD Greater than 90; Glucose 144 mg/dL (80-115); Potassium 3.2 mmol/L (3.5-5.1); Sodium 145 mmol/L (136-145)
[2020-04-19] MEDS: Piperacillin/Tazobactam 3.375 GM in Sodium Chloride 0.9% 100 ML IVPB SCH ×3 (05:55→17:03)
[2020-04-19] MEDS ORDERED: Potassium Chloride 40 MEQ in Premix Bag 1 BAG IVPB SCH (06:30)
--- NOTE | 2020-04-19 07:38 | RAD ---
Chest one view HISTORY: Dyspnea. Intubated. Follow-up. COMPARISON: 04/16/2020. Findings cardiac silhouette is magnified by projection and partially obscured by new opacity at the r ight base with the appearance of pleural fluid and infiltrate. Ill-defined parenchymal opacity also projects over the left lung base, partially obscuring the left h emidiaphragm. Mediastinum is midline. Lines and tubes are unchanged in position. Extrinsic artifact results in line running across the upper mediastinum. No evidence of pneumothorax. IMPRESSION : New dense right basilar infiltrate and right pleural fluid. New less severe left basilar infiltrate. Cause is not evident.
[2020-04-19] MEDS: Sodium Chloride 0.9% 1,000 ML IV SCH ×2 (10:25→17:03)
--- NOTE | 2020-04-19 10:53 | PRG ---
DATE OF SERVICE: 04/19/2020 SUBJECTIVE: Mr. Davison continues to receive ventilatory support. He was given a CPAP trial earlier this morning and went about an hour before he became tachypneic and had a fall in tidal volumes. This is improved compared to yesterday, although not yet to the point of significant weaning. He remains on low sedation. His family have been apprised of his current condition. PHYSICAL EXAMINATION: VITAL SIGNS: Blood pressure is 120/66, heart rate is 57, saturation 100%, although a few minutes ago, it did drift down into the low 90s. He has been on 21% oxygen by ventilator and I have increased him to 30%. I's and O's in the preceding 24 hours include input 3060, output 1330 reflecting a positive balance. Over his hospitalization, he is net positive over 4 L. GENERAL: He is intubated, poorly responsive, been in large part due to sedation. LUNGS: Hyperinflated without wheezing. HEART: Regular rate and rhythm. There is no murmur. ABDOMEN: Soft. He has no organomegaly. He has 1 to 2+ pitting pedal edema. LABORATORY DATA: White count 16.3, hemoglobin is 11.6, platelet count 154,000. He has 5% bands. Electrolytes include sodium 145, potassium 3.2, chloride 104, CO2 is 34, BUN 16, creatinine 0.7. Chest x-ray shows haziness in the right base, increased compared to before. There is also consolidation in the left base. He probably has at least a small right pleural effusion. IMPRESSION: Hypercapnic respiratory failure. He is a nonsmoker and does not have a history of chronic obstructive pulmonary disease. The possibility of a neuromuscular process has been entertained. A neurology consultation did not suggest myasthenia gravis and a MRI of the thoracolumbar spine has been requested. Further evaluation by Neurology is pending. PLAN: We will continue current supportive therapies. The patient did not have adequate time or efforts on CPAP trial today and attempted extubation is deferred for at least another 24 hours. MRI of the spine will need to be done at some point. His echocardiogram did not demonstrate significant valvular disease or evidence of low output state. Critical care today 30 minutes. Job ID: [id number]
[2020-04-19 11:53] LABS: Potassium 3.5 mmol/L (3.5-5.1)
[2020-04-19] MEDS ORDERED: Potassium Chloride 40 MEQ in Sodium Chloride 0.9% 250 ML 250 ML IV SCH (12:15)
--- NOTE | 2020-04-19 14:39 | PDOC.HOSPP ---
- Subjective Encounter Date: 04/19/20 non-verbal (Intubated) - Objective Vital Signs & Weight: Vital Signs (12 hours) Temp Pulse Resp BP Pulse Ox 04/19/20 14:00 10 L 04/19/20 12:00 15 04/19/20 11:07 76 107/58 L 04/19/20 11:00 98.7 F 04/19/20 10:00 13 04/19/20 08:38 79 126/71 04/19/20 08:00 24 H 04/19/20 07:32 15 100 04/19/20 07:00 98.8 F 04/19/20 06:00 13 04/19/20 04:00 97.6 F 14 04/19/20 03:12 90 98/62 Weight Admit Weight 151 lb 3.794 oz Weight 161 lb 6.054 oz Most Recent Monitor Data Heart Rate from ECG 57 NIBP 128/74 NIBP BP-Mean 91 Respiration from ECG 0 SpO2 100 I&O: 04/18/20 04/19/20 04/20/20 06:59 06:59 06:59 Intake Total 3016.4 3062.5 Output Total 1005 1330 145 Balance 2010.4 1732.5 -145 Result Diagrams: 04/19/20 03:30 04/19/20 11:29 Additional Labs: Accuchecks 04/19/20 04/18/20 04/18/20 10:19 22:10 16:12 POC Glucose 149 H 134 H 138 H Hospitalist ROS - Medication Medications: Active Medications Generic Name Dose Route Start Last Admin Trade Name Freq PRN Reason Stop Dose Admin Atorvastatin Calcium 40 mg 04/16/20 21:00 04/18/20 20:33 Lipitor PO 40 mg HS JUAN Administration Hydrocortisone Sodium Succinate 50 mg 04/16/20 20:00 04/19/20 14:22 Solu-Cortef IVP 50 mg 0200,0800,1400,2000 JUAN Administration Piperacillin Sod/Tazobactam 100 mls @ 200 mls/hr 04/16/20 23:59 04/19/20 11: 03 Sod 3.375 gm/ Sodium Chloride IVPB 100 mls Q6HR JUAN Administration Sodium Chloride 1,000 mls @ 100 mls/hr 04/16/20 20:00 04/19/20 10:25 Normal Saline 0.9% IV 1,000 mls .Q10H JUAN Administration Norepinephrine Bitartrate 250 mls @ 0 mls/hr 04/16/20 20:00 04/17/20 06:58 Levophed IVPB 250 mls INF JUAN Administration Protocol Titrate Dexmedetomidine HCl 400 mcg/ 100 mls @ 0 mls/hr 04/17/20 17:15 04/19/20 12:37 Sodium Chloride IVPB 100 mls INF JUAN Administration Protocol Titrate Potassium Chloride 40 meq/ 270 mls @ 67.5 mls/hr 04/19/20 12:15 04/19/20 12: 37 Sodium Chloride IV 04/19/20 17:00 270 mls NOW JUAN Administration Propofol 1,000 mg 04/16/20 21:36 04/19/20 10:25 Diprivan IV 05/16/20 21:36 1,000 mg INF PRN Administration TO ACHIEVE GOAL RASS Protocol Sodium Chloride 10 ml 04/18/20 09:00 04/19/20 08:43 Flush - Normal Saline IVF 10 ml Q12HR JUAN Administration - Exam ENT: normocephalic atraumatic Neck: supple Heart: RRR, normal peripheral pulses Respiratory - other findings: Bilateral lower lung crackles and diminished breath sounds on the right Hosp A/P - Plan 04/18: Acute hypoxic/hypercapneic failure - possibly septic shock unknown source vs undiagnosed COPD exacerbation vs neuromuscular disease (like ALS?)/autoimmune disease - patient was found slumped at work. Found to have pH 7.1, PCO2 130. He was hypotensive as well. He is s/p intubation - blood cultures negative, UA+ but urine culture normal - discontinued vancomycin, continue zosyn. Continue IV steroids - syphilis negative. PITO pending. Neurology consulted due to possibility of neuromuscular disease or degenerative disease. Myasthenia antibodies ordered and pending Acute encephalopathy - likely due to acidosis - CT head normal , CTA head and neck no stenosis Metabolic alkalosis - improving, pH has improved to 7.5. Continue IV fluids Elevated troponin - troponin elevated at 0.040, with CKMB 29. Troponins downtrended -ECHO unremarkable - continue aspirin and statin Type II diabetes - fingersticks q6 hours - insulin sliding scale Weight loss - CT chest shows no evidence of cance - obtain CT abdomen when stable Anemia - Hb 12. Likely dilutional from fluids 04/19: Chest x-ray showing new dense infiltrate and effusion in the right lung base. The patient remains on IV antibiotics as above. Continue vent management per pulmonology. Continue neurology work-up including MRIs.
[2020-04-19] MEDS: HumaLOG 300 UNITS/3 ML VIAL SC PRN ×2 (15:50→22:05)
[2020-04-19] MEDS: Atorvastatin Calcium 40 MG TAB PO SCH (20:20)
[2020-04-20] MEDS: Piperacillin/Tazobactam 3.375 GM in Sodium Chloride 0.9% 100 ML IVPB SCH ×4 (00:23→16:45)
[2020-04-20] MEDS: Hydrocortisone Sod Succ/PF 100 mg/2 ml Vial IVP SCH ×4 (01:15→20:57)
[2020-04-20] MEDS: Sodium Chloride 0.9% 1,000 ML IV SCH ×2 (03:51→13:47)
[2020-04-20 04:46] LABS: Anion Gap 9 mmol/L (10-20); BUN (Urea Nitrogen) 18 mg/dL (8.4-25.7); Calc. Creatinine Clearance 114 mL/min (70-130); Calcium 7.6 mg/dL (7.8-10.44); Carbon Dioxide 32 mmol/L (23-31); Chloride 107 mmol/L (98-107); Estimated GFR-MDRD Greater than 90; Glucose 213 mg/dL (80-115); Potassium 3.6 mmol/L (3.5-5.1); Sodium 144 mmol/L (136-145)
[2020-04-20 04:47] LABS: Basophilic Stippling SLIGHT = 1-2 cells (100X) (None Seen); Elliptocytes SLIGHT = 2-5 cells (100X) (0-1/hpf); Hemoglobin 10.9 g/dL (14.0-18.0); Lymphocytes 4 % (21-51); MDiff Complete? YES; Mean Corpuscular HGB CONC 31.1 g/dL (32.0-36.0); Mean Corpuscular Hemoglobin 29.5 pg (27.0-31.0); Mean Platelet Volume 10.7 fL (7.4-10.4); Monocytes 2 % (0-10); Neutrophil 94 % (42-75); Platelet Count 140 thou/uL (130-400); Platelet Morphology Comment Appears Adequate; RBC Distribution Width 12.7 % (11.5-14.5); White Blood Cell (WBC) Count 12.5 thou/uL (4.8-10.8)
[2020-04-20] MEDS: HumaLOG 300 UNITS/3 ML VIAL SC PRN ×2 (05:28→23:04)
[2020-04-20 07:30] LABS: Actual Bicarbonate (HCO3a) 30.2 mEq/L (22-28); Base Excess (BEa) 4.3 mEq/L (-2.0 to +3.0); Calcium, Ionized (arterial) 1.14 mmol/L (1.12-1.30); Carboxyhemoglobin (COHb) 0.3 gm% (0.0-3.0); Hemoglobin (Hb) 11.7 g/dL (14.0-18.0); O2 Tension (PaO2), arterial 94.8 mmHg (> 80.0); Potassium - ABG Lab 3.23 mmol/L (3.70-5.30); pH, Arterial 7.39 (7.35-7.45)
--- NOTE | 2020-04-20 07:52 | RAD ---
Chest one view HISTORY: Dyspnea. Intubated. Follow-up. COMPARISON: 04/19/2020. FINDINGS: Cardiac silhouette is magnified by projection. Pulmonary vasculature upper limits of normal and accentuated by shallow inspiration. Mediastinum is midline. Lines and tubes appear unchanged in position. Small amount of bilateral pleural fluid is again demonstrated. Right basilar infiltrate is less prono unced than on yesterday's exam. IMPRESSION : Slight interval improved aeration of the right lower lobe. Small bilateral pleural effusions persist.
--- NOTE | 2020-04-20 11:10 | PDOC.HOSPP ---
- Subjective Encounter Date: 04/20/20 Subjective: The patient remains on the vent, however, he is awake and able to respond to questions by moving his lips and head. According to the patient's family. He has been experiencing worsening weakness and back pain. He was offered back surgery in the past but the patient refused. He is currently wheelchair-bound. - Objective Vital Signs & Weight: Vital Signs (12 hours) Temp Pulse Resp BP Pulse Ox 04/20/20 08:00 25 H 04/20/20 07:46 88 109/62 04/20/20 07:34 22 H 100 04/20/20 06:00 8 L 04/20/20 04:00 98.6 F 8 L 04/20/20 02:50 48 L 126/68 04/20/20 02:00 8 L 04/20/20 00:00 99.2 F 8 L Weight Admit Weight 151 lb 3.794 oz Weight 168 lb 3.403 oz Most Recent Monitor Data Heart Rate from ECG 88 NIBP 104/58 NIBP BP-Mean 63 Respiration from ECG 0 SpO2 100 I&O: 04/19/20 04/20/20 04/21/20 06:59 06:59 06:59 Intake Total 3062.5 3809.8 Output Total 1330 770 45 Balance 1732.5 3039.8 -45 Result Diagrams: 04/20/20 03:30 04/20/20 03:30 Additional Labs: Accuchecks 04/20/20 04/19/20 04/19/20 09:54 22:09 15:51 POC Glucose 152 H 192 H 177 H Hospitalist ROS - Medication Medications: Active Medications Generic Name Dose Route Start Last Admin Trade Name Freq PRN Reason Stop Dose Admin Atorvastatin Calcium 40 mg 04/16/20 21:00 04/19/20 20:20 Lipitor PO 40 mg HS JUAN Administration Hydrocortisone Sodium Succinate 50 mg 04/16/20 20:00 04/20/20 08:02 Solu-Cortef IVP 50 mg 0200,0800,1400,2000 JUAN Administration Piperacillin Sod/Tazobactam 100 mls @ 200 mls/hr 04/16/20 23:59 04/20/20 05: 24 Sod 3.375 gm/ Sodium Chloride IVPB 100 mls Q6HR JUAN Administration Sodium Chloride 1,000 mls @ 100 mls/hr 04/16/20 20:00 04/20/20 03:51 Normal Saline 0.9% IV 1,000 mls .Q10H JUAN Administration Norepinephrine Bitartrate 250 mls @ 0 mls/hr 04/16/20 20:00 04/17/20 06:58 Levophed IVPB 250 mls INF JUAN Administration Protocol Titrate Dexmedetomidine HCl 400 mcg/ 100 mls @ 0 mls/hr 04/17/20 17:15 04/19/20 12:37 Sodium Chloride IVPB 100 mls INF JUAN Administration Protocol Titrate Insulin Human Lispro 0 units 04/16/20 20:03 04/20/20 05:28 Humalog SC 3 unit .MILD SLIDING SCALE PRN Administration Mild Correctional Scale Propofol 1,000 mg 04/16/20 21:36 04/19/20 17:03 Diprivan IV 05/16/20 21:36 1,000 mg INF PRN Administration TO ACHIEVE GOAL RASS Protocol Sodium Chloride 10 ml 04/18/20 09:00 04/20/20 08:02 Flush - Normal Saline IVF 10 ml Q12HR JUAN Administration - Exam General Appearance: awake alert ENT: normocephalic atraumatic Neck: supple, no JVD Respiratory: no tachypnea, normal percussion Extremities: no cyanosis, no clubbing Neurological - other findings: Able to move all his extremities Hosp A/P - Plan 04/18: Acute hypoxic/hypercapneic failure - possibly septic shock unknown source vs undiagnosed COPD exacerbation vs neuromuscular disease (like ALS?)/autoimmune disease - patient was found slumped at work. Found to have pH 7.1, PCO2 130. He was hypotensive as well. He is s/p intubation - blood cultures negative, UA+ but urine culture normal - discontinued vancomycin, continue zosyn. Continue IV steroids - syphilis negative. PITO pending. Neurology consulted due to possibility of neuromuscular disease or degenerative disease. Myasthenia antibodies ordered and pending Acute encephalopathy - likely due to acidosis - CT head normal , CTA head and neck no stenosis Metabolic alkalosis - improving, pH has improved to 7.5. Continue IV fluids Elevated troponin - troponin elevated at 0.040, with CKMB 29. Troponins downtrended -ECHO unremarkable - continue aspirin and statin Type II diabetes - fingersticks q6 hours - insulin sliding scale Weight loss - CT chest shows no evidence of cance - obtain CT abdomen when stable Anemia - Hb 12. Likely dilutional from fluids 04/19: Chest x-ray showing new dense infiltrate and effusion in the right lung base. The patient remains on IV antibiotics as above. Continue vent management per pulmonology. Continue neurology work-up including MRIs. 04/20: The patient is awake and able to move all his extremities. He shook his head no to the idea of trach or PEG or any procedures to his back. Since his problem appears to be chronic, and the patient does not wish for intervention, we will defer MRI of the spine. Continue vent management per pulmonology.
--- NOTE | 2020-04-20 18:17 | PRG ---
DATE OF SERVICE: 04/20/2020 SUBJECTIVE: Mr. Davison has done very well with CPAP trials. His spontaneous volumes are as much as 500. He is awake today and writing notes. He has communicated to the nurse that surgery has been discussed with him as an option; however, he has refused in the past. When asked about surgery now, he also adamantly refuses. I think it is appropriate that we try to extubate him and see how he does. He has communicated that he used to be on CPAP at home, although it is unclear whether he is actually taking it. We will use this to support him post extubation. PHYSICAL EXAMINATION: VITAL SIGNS: Blood pressure 125/74, heart rate 87, oxygen saturation has been 100. The patient is awake and able to follow commands. He is able to write and try to talk despite the endotracheal tube. He denies pain. NECK: He has no palpable adenopathy or JVD. LUNGS: Coarse rhonchi. HEART: Regular rate and rhythm. ABDOMEN: Soft. There is no organomegaly. EXTREMITIES: He has trace ankle edema. LABORATORY DATA: White count today 12,500, hemoglobin is 10.9 with hematocrit 35.1, and platelet count is 140,000. His chemistry includes sodium 144, potassium 3.6, chloride 107, bicarbonate 32, BUN 18, creatinine 0.6. His blood gas on CPAP includes pH 7.39, CO2 51, PO2 95, and bicarbonate 30. IMPRESSION: 1. 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 There is no evidence per Neurology that he has myasthenia. The patient seems to suggest that this has been a chronic process and likely confirmed by his home need for CPAP/BiPAP therapy. 2. Chronic back pain. The patient again is able to communicate by writing that he has refused surgery in the past and continues to do so now. PLAN: We will pursue extubation and use BiPAP as needed post extubation. Hopefully, we can get more information from him after he is extubated. We will encourage that he have a conversation with his family as to his wishes regarding end of life care so that this can be well defined and confirmed prior to the inevitable need. Critical care time, 30 minute. Job ID: [id number]
[2020-04-20] MEDS: Atorvastatin Calcium 40 MG TAB PO SCH ×2 (20:57→20:58)
[2020-04-21] MEDS: Piperacillin/Tazobactam 3.375 GM in Sodium Chloride 0.9% 100 ML IVPB SCH ×4 (00:37→17:14)
[2020-04-21] MEDS: Sodium Chloride 0.9% 1,000 ML IV SCH ×3 (01:43→20:35)
[2020-04-21] MEDS: Hydrocortisone Sod Succ/PF 100 mg/2 ml Vial IVP SCH ×2 (03:34→09:18)
[2020-04-21 05:08] LABS: Anion Gap 5 mmol/L (10-20); BUN (Urea Nitrogen) 15 mg/dL (8.4-25.7); Calc. Creatinine Clearance 136 mL/min (70-130); Calcium 7.7 mg/dL (7.8-10.44); Carbon Dioxide 37 mmol/L (23-31); Chloride 108 mmol/L (98-107); Estimated GFR-MDRD Greater than 90; Glucose 123 mg/dL (80-115); Potassium 3.3 mmol/L (3.5-5.1); Sodium 147 mmol/L (136-145)
[2020-04-21 05:30] LABS: Band 2 % (5-11); Hemoglobin 11.1 g/dL (14.0-18.0); Lymphocytes 5 % (21-51); MDiff Complete? YES; Mean Corpuscular HGB CONC 30.3 g/dL (32.0-36.0); Mean Corpuscular Hemoglobin 29.8 pg (27.0-31.0); Mean Corpuscular Volume 98.4 fL (78.0-98.0); Mean Platelet Volume 10.2 fL (7.4-10.4); Monocytes 5 % (0-10); Neutrophil 88 % (42-75); Platelet Count 147 thou/uL (130-400); Platelet Morphology Comment Appears Adequate; RBC Distribution Width 12.6 % (11.5-14.5); Red Blood Cell (RBC) Count 3.72 mill/uL (4.70-6.10); White Blood Cell (WBC) Count 12.7 thou/uL (4.8-10.8)
--- NOTE | 2020-04-21 07:52 | RAD ---
Chest one view HISTORY: Dyspnea. Follow-up. COMPARISON: 04/20/2020. FINDINGS: Cardiac silhouette is magnified by projection. Pulmonary vasculature remains upper limits o f normal. Mediastinum is midline. Endotracheal catheter and nasogastric tube no longer visible. Right internal jugular central venous catheter remains in place. Right hemidiaphragm now more obscured by ill-defined hazy parenchymal and pleural opacity. Opacity at the left base is stable. No evidence of pneumothorax. IMPRESSION : Interval reaccumulation of right pleural fluid and basilar atelectasis. Small amount of left pleural fluid appears stable. Interval removal of endotracheal catheter and nasogastric tube.
[2020-04-21 11:37] LABS: Potassium 3.8 mmol/L (3.5-5.1)
[2020-04-21] MEDS ORDERED: Enoxaparin Sodium 40 MG/0.4 ML SYRINGE SC SCH (14:00)
--- NOTE | 2020-04-21 15:12 | PDOC.HOSPP ---
- Subjective Encounter Date: 04/21/20 Subjective: Patient was extubated. He denies any shortness of breath today. - Objective Vital Signs & Weight: Vital Signs (12 hours) Temp Pulse Ox 04/21/20 15:00 98.1 F 04/21/20 11:00 97.9 F 04/21/20 07:06 100 04/21/20 07:00 97.9 F 04/21/20 04:00 97.8 F Weight Admit Weight 151 lb 3.794 oz Weight 167 lb 1.766 oz Most Recent Monitor Data Heart Rate from ECG 97 NIBP 131/72 NIBP BP-Mean 90 Respiration from ECG 12 SpO2 100 I&O: 04/20/20 04/21/20 04/22/20 06:59 06:59 06:59 Intake Total 3809.8 3081 820 Output Total 770 1007 350 Balance 3039.8 2074 470 Result Diagrams: 04/21/20 04:18 04/21/20 11:02 Additional Labs: Accuchecks 04/21/20 04/21/20 04/20/20 11:14 04:28 22:53 POC Glucose 183 H 115 H 169 H 04/20/20 16:47 POC Glucose 164 H Hospitalist ROS - Medication Medications: Active Medications Generic Name Dose Route Start Last Admin Trade Name Ruq PRN Reason Stop Dose Admin Atorvastatin Calcium 40 mg 04/16/20 21:00 04/20/20 20:58 Lipitor PO Not Given HS JUAN Enoxaparin Sodium 40 mg 04/21/20 14:00 04/21/20 15:09 Lovenox SC 04/21/20 16:00 40 mg NOW JUAN Administration Piperacillin Sod/Tazobactam 100 mls @ 200 mls/hr 04/16/20 23:59 04/21/20 11: 11 Sod 3.375 gm/ Sodium Chloride IVPB 100 mls Q6HR JUAN Administration Sodium Chloride 1,000 mls @ 100 mls/hr 04/16/20 20:00 04/21/20 09:22 Normal Saline 0.9% IV 1,000 mls .Q10H JUAN Administration Norepinephrine Bitartrate 250 mls @ 0 mls/hr 04/16/20 20:00 04/17/20 06:58 Levophed IVPB 250 mls INF JUAN Administration Protocol Titrate Dexmedetomidine HCl 400 mcg/ 100 mls @ 0 mls/hr 04/17/20 17:15 04/19/20 12:37 Sodium Chloride IVPB 100 mls INF JUAN Administration Protocol Titrate Insulin Human Lispro 0 units 04/16/20 20:03 04/20/20 23:04 Humalog SC 2 unit .MILD SLIDING SCALE PRN Administration Mild Correctional Scale Sodium Chloride 10 ml 04/18/20 09:00 04/21/20 09:19 Flush - Normal Saline IVF 10 ml Q12HR JUAN Administration - Exam General Appearance: awake alert ENT: normocephalic atraumatic Neck: supple, no JVD Heart: RRR Respiratory: normal chest expansion, no tachypnea Gastrointestinal: soft, non-tender Neurological: cranial nerve grossly intact Hosp A/P - Plan 04/18: Acute hypoxic/hypercapneic failure - possibly septic shock unknown source vs undiagnosed COPD exacerbation vs neuromuscular disease (like ALS?)/autoimmune disease - patient was found slumped at work. Found to have pH 7.1, PCO2 130. He was hypotensive as well. He is s/p intubation - blood cultures negative, UA+ but urine culture normal - discontinued vancomycin, continue zosyn. Continue IV steroids - syphilis negative. PITO pending. Neurology consulted due to possibility of neuromuscular disease or degenerative disease. Myasthenia antibodies ordered and pending Acute encephalopathy - likely due to acidosis - CT head normal , CTA head and neck no stenosis Metabolic alkalosis - improving, pH has improved to 7.5. Continue IV fluids Elevated troponin - troponin elevated at 0.040, with CKMB 29. Troponins downtrended -ECHO unremarkable - continue aspirin and statin Type II diabetes - fingersticks q6 hours - insulin sliding scale Weight loss - CT chest shows no evidence of cance - obtain CT abdomen when stable Anemia - Hb 12. Likely dilutional from fluids 04/19: Chest x-ray showing new dense infiltrate and effusion in the right lung base. The patient remains on IV antibiotics as above. Continue vent management per pulmonology. Continue neurology work-up including MRIs. 04/20: The patient is awake and able to move all his extremities. He shook his head no to the idea of trach or PEG or any procedures to his back. Since his problem appears to be chronic, and the patient does not wish for intervention, we will defer MRI of the spine. Continue vent management per pulmonology. 04/21: Patient was extubated and is currently stable. No evidence of respiratory distress. He can be downgraded to medical when okay by pulmonology. The patient is wheelchair-bound at home.
--- NOTE | 2020-04-21 21:02 | PRG ---
DATE OF SERVICE: OBJECTIVE: VITAL SIGNS: He is afebrile. Heart rates in the 90s, blood pressure 122/67. LUNGS: Clear. HEART: Regular rhythm. ABDOMEN: Soft. LABORATORY DATA: White count 12.7, hemoglobin 11.1, platelets 147. Sodium 147, potassium 3.3, chloride 108, bicarb 37, BUN 15, creatinine 0.56. IMPRESSION: Acute on chronic hypercarbic respiratory failure, the etiology of which is unclear. It seems unlikely that his cervical spine lesion i.e., from arthritis would create bilateral diaphragm dysfunction. Neurology does not feel he has myasthenia. We will continue to follow. Job ID: [id number]
[2020-04-21] MEDS: Atorvastatin Calcium 40 MG TAB PO SCH (21:32)
[2020-04-21] MEDS: Famotidine 20 MG TAB PO SCH (21:32)
[2020-04-22] MEDS: Piperacillin/Tazobactam 3.375 GM in Sodium Chloride 0.9% 100 ML IVPB SCH ×3 (00:14→12:48)
[2020-04-22 06:36] LABS: Hemoglobin 11.4 g/dL (14.0-18.0); Hypochromia SLIGHT = 6-15 cells (100X) (0-5/hpf); Lymphocytes 10 % (21-51); MDiff Complete? YES; Mean Corpuscular HGB CONC 29.7 g/dL (32.0-36.0); Mean Corpuscular Hemoglobin 29.5 pg (27.0-31.0); Mean Corpuscular Volume 99.5 fL (78.0-98.0); Mean Platelet Volume 9.6 fL (7.4-10.4); Monocytes 14 % (0-10); Neutrophil 76 % (42-75); Platelet Count 152 thou/uL (130-400); Platelet Morphology Comment Appears Adequate; RBC Distribution Width 12.3 % (11.5-14.5); Red Blood Cell (RBC) Count 3.87 mill/uL (4.70-6.10)
[2020-04-22 06:41] LABS: BUN (Urea Nitrogen) 12 mg/dL (8.4-25.7); Calc. Creatinine Clearance 143 mL/min (70-130); Calcium 7.5 mg/dL (7.8-10.44); Estimated GFR-MDRD Greater than 90; Glucose 115 mg/dL (80-115)
[2020-04-22 06:50] LABS: Anion Gap 9 mmol/L (10-20); Carbon Dioxide 35 mmol/L (23-31); Chloride 106 mmol/L (98-107); Potassium 3.3 mmol/L (3.5-5.1); Sodium 147 mmol/L (136-145)
[2020-04-22] MEDS: Sodium Chloride 0.9% 1,000 ML IV SCH ×2 (07:28→17:58)
[2020-04-22] MEDS ORDERED: Potassium Chloride 20 MEQ TAB PO SCH ×2 (07:45→14:30)
--- NOTE | 2020-04-22 07:47 | RAD ---
XR Chest 1 View Portable History: Ventilated patient Comparison: Radiograph prior day Findings: The right pleural effusion is now subpulmonic. Moderate left subpulmonic effusion. Right IJ central venous catheter tip projects over the right atrium. No pneumothorax. Impression: Moderate bilateral pleural effusions. Similar examination of the chest.
[2020-04-22] MEDS: Famotidine 20 MG TAB PO SCH ×2 (08:32→20:27)
[2020-04-22] MEDS: Enoxaparin Sodium 40 MG/0.4 ML SYRINGE SC SCH (08:33)
[2020-04-22] MEDS: predniSONE 20 MG TAB PO SCH (08:33)
--- NOTE | 2020-04-22 12:41 | PDOC.HOSPP ---
- Subjective Encounter Date: 04/22/20 Subjective: NEUROLOGY PROGRESS NOTE Patient now extubated and was able to participate with examination. - Objective Vital Signs & Weight: Vital Signs (12 hours) Temp 04/22/20 12:00 97.4 F L 04/22/20 07:00 97.6 F 04/22/20 04:00 97.7 F Weight Admit Weight 151 lb 3.794 oz Weight 167 lb 1.766 oz Most Recent Monitor Data Heart Rate from ECG 102 NIBP 119/70 NIBP BP-Mean 86 Respiration from ECG 3 SpO2 100 I&O: 04/21/20 04/22/20 04/23/20 06:59 06:59 06:59 Intake Total 3081 1673 Output Total 1007 723 Balance 2074 950 Result Diagrams: 04/22/20 06:00 04/22/20 06:00 Additional Labs: Accuchecks 04/22/20 04/22/20 04/21/20 05:53 00:00 21:35 POC Glucose 103 160 H 168 H 04/21/20 17:21 POC Glucose 162 H Radiology Reviewed by me: Yes EKG Reviewed by me: Yes Hospitalist ROS - Review of Systems Constitutional: denies: fever, chills, sweats, weakness, malaise, other Eyes: denies: pain, vision change, conjunctivae inflammation, eyelid inflammation, redness, other ENT: denies: ear pain, ear discharge, nose pain, nose discharge, nose congestion , mouth pain, mouth swelling, throat pain, throat swelling, other Respiratory: reports: shortness of breath. denies: cough, dry, hemoptysis, SOB with excertion, pleuritic pain, sputum, wheezing, other Cardiovascular: denies: chest pain, palpitations, orthopnea, paroxysmal noc. dyspnea, edema, light headedness, other Gastrointestinal: denies: nausea, vomiting, abdominal pain, diarrhea, constipation, melena, hematochezia, other Genitourinary: denies: dysuria, frequency, incontinence, hematuria, retention, other Musculoskeletal: denies: neck pain, shoulder pain, arm pain, back pain, hand pain, leg pain, foot pain, other Neurological: denies: weakness, numbness, incoordination, change in speech, confusion, seizures, other - Medication Medications: Active Medications Generic Name Dose Route Start Last Admin Trade Name Freq PRN Reason Stop Dose Admin Atorvastatin Calcium 40 mg 04/16/20 21:00 04/21/20 21:32 Lipitor PO 40 mg HS JUAN Administration Enoxaparin Sodium 40 mg 04/22/20 09:00 04/22/20 08:33 Lovenox SC 40 mg 0900 JUAN Administration Famotidine 20 mg 04/21/20 21:00 04/22/20 08:32 Pepcid PO 20 mg BID JUAN Administration Piperacillin Sod/Tazobactam 100 mls @ 200 mls/hr 04/16/20 23:59 04/22/20 05: 47 Sod 3.375 gm/ Sodium Chloride IVPB 100 mls Q6HR JUAN Administration Sodium Chloride 1,000 mls @ 100 mls/hr 04/16/20 20:00 04/22/20 07:28 Normal Saline 0.9% IV Not Given .Q10H JUAN Norepinephrine Bitartrate 250 mls @ 0 mls/hr 04/16/20 20:00 04/17/20 06:58 Levophed IVPB 250 mls INF JUAN Administration Protocol Titrate Dexmedetomidine HCl 400 mcg/ 100 mls @ 0 mls/hr 04/17/20 17:15 04/19/20 12:37 Sodium Chloride IVPB 100 mls INF JUAN Administration Protocol Titrate Insulin Human Lispro 0 units 04/16/20 20:03 04/20/20 23:04 Humalog SC 2 unit .MILD SLIDING SCALE PRN Administration Mild Correctional Scale Prednisone 10 mg 04/22/20 09:00 04/22/20 08:33 Prednisone PO 10 mg DAILY JUAN Administration Sodium Chloride 10 ml 04/18/20 09:00 04/22/20 08:33 Flush - Normal Saline IVF 10 ml Q12HR JUAN Administration - Exam General Appearance: awake alert Eye: PERRL ENT: normocephalic atraumatic Neck: supple Heart: RRR Respiratory: CTAB Gastrointestinal: soft Extremities: no cyanosis Skin: normal turgor Neurological: no focal deficits, no new deficit Musculoskeletal: normal tone Psychiatric: A&O x 3 Hosp A/P (1) Generalized weakness Code(s): R53.1 - WEAKNESS Status: Acute (2) Hypercapnic respiratory failure Code(s): J96.92 - RESPIRATORY FAILURE, UNSPECIFIED WITH HYPERCAPNIA Status: Acute - Plan PT/OT, speech therapy Consults: Hospice 69 year old consulted for lower extremity weakness and recent falls . There is also a concern about MG due to diaphragmatic weakness. Previous neuro exam was limited since he was intubated and propofol was turned off for half an hour. He was not able to provide a history. Patient denies progressive fatigue during the day, diplopia , or difficulty in swallowing. Neurological examination was negative for ptosis and was unable to elicit ptosis on examination. He does have generalized weakness. Will follow up on MG panel. No muscle fasciculations noted on examination. No clear clinical symptoms or signs of ALS. Further investigation warranted as outpatient with NCS/EMG in the neurology clinic. Consider CT chest to rule out [place] SYNDROME. Spine MRI were recommended to evaluate for ongoing gait issues and extremities weakness but not for diaphragmatic weakness Neurochecks every 4 hours. PT/OT/Speech. Continue home medications. Continue medical management per primary team.
--- NOTE | 2020-04-22 14:34 | PDOC.HOSPP ---
- Subjective Encounter Date: 04/22/20 Subjective: No new complaints today. - Objective Vital Signs & Weight: Vital Signs (12 hours) Temp 04/22/20 12:00 97.4 F L 04/22/20 07:00 97.6 F 04/22/20 04:00 97.7 F Weight Admit Weight 151 lb 3.794 oz Weight 167 lb 1.766 oz Most Recent Monitor Data Heart Rate from ECG 96 NIBP 128/76 NIBP BP-Mean 93 Respiration from ECG 9 SpO2 100 I&O: 04/21/20 04/22/20 04/23/20 06:59 06:59 06:59 Intake Total 3081 1673 Output Total 1007 723 Balance 2074 950 Result Diagrams: 04/22/20 06:00 04/22/20 06:00 Additional Labs: Accuchecks 04/22/20 04/22/20 04/21/20 05:53 00:00 21:35 POC Glucose 103 160 H 168 H 04/21/20 17:21 POC Glucose 162 H Hospitalist ROS - Medication Medications: Active Medications Generic Name Dose Route Start Last Admin Trade Name Freq PRN Reason Stop Dose Admin Atorvastatin Calcium 40 mg 04/16/20 21:00 04/21/20 21:32 Lipitor PO 40 mg HS JUAN Administration Enoxaparin Sodium 40 mg 04/22/20 09:00 04/22/20 08:33 Lovenox SC 40 mg 0900 JUAN Administration Famotidine 20 mg 04/21/20 21:00 04/22/20 08:32 Pepcid PO 20 mg BID JUAN Administration Piperacillin Sod/Tazobactam 100 mls @ 200 mls/hr 04/16/20 23:59 04/22/20 12: 48 Sod 3.375 gm/ Sodium Chloride IVPB 04/23/20 18:29 100 mls Q6HR JUAN Administration Sodium Chloride 1,000 mls @ 100 mls/hr 04/16/20 20:00 04/22/20 07:28 Normal Saline 0.9% IV Not Given .Q10H JUAN Insulin Human Lispro 0 units 04/16/20 20:03 04/20/20 23:04 Humalog SC 2 unit .MILD SLIDING SCALE PRN Administration Mild Correctional Scale Prednisone 10 mg 04/22/20 09:00 04/22/20 08:33 Prednisone PO 10 mg DAILY JUAN Administration Sodium Chloride 10 ml 04/18/20 09:00 04/22/20 08:33 Flush - Normal Saline IVF 10 ml Q12HR JUAN Administration - Exam General Appearance: awake alert Neck: supple, no JVD Heart: RRR Respiratory: normal chest expansion, no tachypnea Gastrointestinal: soft, non-tender Hosp A/P - Plan 04/18: Acute hypoxic/hypercapneic failure - possibly septic shock unknown source vs undiagnosed COPD exacerbation vs neuromuscular disease (like ALS?)/autoimmune disease - patient was found slumped at work. Found to have pH 7.1, PCO2 130. He was hypotensive as well. He is s/p intubation - blood cultures negative, UA+ but urine culture normal - discontinued vancomycin, continue zosyn. Continue IV steroids - syphilis negative. PITO pending. Neurology consulted due to possibility of neuromuscular disease or degenerative disease. Myasthenia antibodies ordered and pending Acute encephalopathy - likely due to acidosis - CT head normal , CTA head and neck no stenosis Metabolic alkalosis - improving, pH has improved to 7.5. Continue IV fluids Elevated troponin - troponin elevated at 0.040, with CKMB 29. Troponins downtrended -ECHO unremarkable - continue aspirin and statin Type II diabetes - fingersticks q6 hours - insulin sliding scale Weight loss - CT chest shows no evidence of cance - obtain CT abdomen when stable Anemia - Hb 12. Likely dilutional from fluids 04/19: Chest x-ray showing new dense infiltrate and effusion in the right lung base. The patient remains on IV antibiotics as above. Continue vent management per pulmonology. Continue neurology work-up including MRIs. 04/20: The patient is awake and able to move all his extremities. He shook his head no to the idea of trach or PEG or any procedures to his back. Since his problem appears to be chronic, and the patient does not wish for intervention, we will defer MRI of the spine. Continue vent management per pulmonology. 04/21: Patient was extubated and is currently stable. No evidence of respiratory distress. He can be downgraded to medical when okay by pulmonology. The patient is wheelchair-bound at home. 04/22: Leukocytosis resolved. No signs of sepsis. Cultures are negative. I will discontinue IV Zosyn. Continue to wean off oxygen as tolerated.
--- NOTE | 2020-04-22 15:27 | PRG ---
DATE OF SERVICE: 04/22/2020 SUBJECTIVE: Sudeep Davison is doing well. He is having no problems. OBJECTIVE: VITAL SIGNS: Heart rates in the 90s, blood pressure 120/76, respiratory rates in the teens. LUNGS: Clear. HEART: Regular rhythm. ABDOMEN: Soft. IMPRESSION: Acute on chronic hypoventilation. No neuromuscular disease has been identified as a cause, although his cervical spine could be contributing, given his lower extremity weakness. We will continue supportive care. Job ID: [id number]
[2020-04-22] MEDS: Atorvastatin Calcium 40 MG TAB PO SCH (20:27)
[2020-04-23] MEDS: Sodium Chloride 0.9% 1,000 ML IV SCH ×3 (01:05→23:10)
[2020-04-23 06:13] LABS: BUN (Urea Nitrogen) 7 mg/dL (8.4-25.7); Calc. Creatinine Clearance 167 mL/min (70-130); Calcium 7.6 mg/dL (7.8-10.44); Estimated GFR-MDRD Greater than 90; Glucose 115 mg/dL (80-115)
[2020-04-23 06:22] LABS: Anion Gap 8 mmol/L (10-20); Carbon Dioxide 37 mmol/L (23-31); Chloride 105 mmol/L (98-107); Potassium 3.8 mmol/L (3.5-5.1); Sodium 146 mmol/L (136-145)
[2020-04-23 06:24] LABS: Band 1 % (5-11); Eosinophils 1 % (0-10); Hemoglobin 11.5 g/dL (14.0-18.0); Lymphocytes 14 % (21-51); MDiff Complete? YES; Mean Corpuscular HGB CONC 30.6 g/dL (32.0-36.0); Mean Corpuscular Hemoglobin 30.4 pg (27.0-31.0); Mean Corpuscular Volume 99.2 fL (78.0-98.0); Mean Platelet Volume 9.7 fL (7.4-10.4); Metamyelocyte 1 % (0-0); Monocytes 8 % (0-10); Neutrophil 75 % (42-75); Platelet Count 161 thou/uL (130-400); Platelet Morphology Comment Appears Adequate; RBC Distribution Width 12.2 % (11.5-14.5); Red Blood Cell (RBC) Count 3.77 mill/uL (4.70-6.10); White Blood Cell (WBC) Count 7.9 thou/uL (4.8-10.8)
[2020-04-23] MEDS: predniSONE 20 MG TAB PO SCH (08:31)
[2020-04-23] MEDS: Famotidine 20 MG TAB PO SCH ×2 (08:31→20:53)
[2020-04-23] MEDS: Enoxaparin Sodium 40 MG/0.4 ML SYRINGE SC SCH (08:32)
--- NOTE | 2020-04-23 09:53 | RAD ---
PORTABLE UPRIGHT FRONTAL CHEST RADIOGRAPH: DATE: 04/23/2020. COMPARISON: 04/22/2020. HISTORY: Ventilated patient. FINDINGS: There is no endotracheal tube present. There is a stable right vascular catheter. There is dense pl eural and parenchymal opacity within the right lung base obscuring the hemidiaphragm. There is parti al consolidation/collapse of the medial left lower lobe with blunting of the left costophrenic angle. Findings are unchanged when compared to the prior exam. IMPRESSION: No significant interval change. POS: [facility]
--- NOTE | 2020-04-23 14:04 | PDOC.HOSPP ---
- Subjective Encounter Date: 04/23/20 Subjective: No acute events over the past 24 hours. - Objective Vital Signs & Weight: Vital Signs (12 hours) Temp Pulse Ox 04/23/20 11:03 97.2 F L 04/23/20 07:53 100 04/23/20 07:12 97.7 F 04/23/20 03:35 97.6 F Weight Admit Weight 151 lb 3.794 oz Weight 180 lb 1.883 oz Most Recent Monitor Data Heart Rate from ECG 101 NIBP 116/66 NIBP BP-Mean 82 Respiration from ECG 4 SpO2 100 I&O: 04/22/20 04/23/20 04/24/20 06:59 06:59 06:59 Intake Total 1673 Output Total 723 Balance 950 Result Diagrams: 04/23/20 05:40 04/23/20 05:40 Additional Labs: Accuchecks 04/23/20 04/23/20 04/22/20 12:01 06:00 20:36 POC Glucose 117 H 87 200 H Hospitalist ROS - Medication Medications: Active Medications Generic Name Dose Route Start Last Admin Trade Name Freq PRN Reason Stop Dose Admin Atorvastatin Calcium 40 mg 04/16/20 21:00 04/22/20 20:27 Lipitor PO 40 mg HS JUAN Administration Enoxaparin Sodium 40 mg 04/22/20 09:00 04/23/20 08:32 Lovenox SC 40 mg 0900 JUAN Administration Famotidine 20 mg 04/21/20 21:00 04/23/20 08:31 Pepcid PO 20 mg BID JUAN Administration Sodium Chloride 1,000 mls @ 100 mls/hr 04/16/20 20:00 04/23/20 12:03 Normal Saline 0.9% IV 1,000 mls .Q10H JUAN Administration Insulin Human Lispro 0 units 04/16/20 20:03 04/20/20 23:04 Humalog SC 2 unit .MILD SLIDING SCALE PRN Administration Mild Correctional Scale Prednisone 10 mg 04/22/20 09:00 04/23/20 08:31 Prednisone PO 10 mg DAILY JUAN Administration Sodium Chloride 10 ml 04/18/20 09:00 04/23/20 12:03 Flush - Normal Saline IVF 10 ml Q12HR JUAN Administration - Exam ENT: normocephalic atraumatic Neck: supple, no JVD Heart: RRR Respiratory: normal chest expansion, no tachypnea Extremities: no cyanosis Hosp A/P - Plan 04/18: Acute hypoxic/hypercapneic failure - possibly septic shock unknown source vs undiagnosed COPD exacerbation vs neuromuscular disease (like ALS?)/autoimmune disease - patient was found slumped at work. Found to have pH 7.1, PCO2 130. He was hypotensive as well. He is s/p intubation - blood cultures negative, UA+ but urine culture normal - discontinued vancomycin, continue zosyn. Continue IV steroids - syphilis negative. PITO pending. Neurology consulted due to possibility of neuromuscular disease or degenerative disease. Myasthenia antibodies ordered and pending Acute encephalopathy - likely due to acidosis - CT head normal , CTA head and neck no stenosis Metabolic alkalosis - improving, pH has improved to 7.5. Continue IV fluids Elevated troponin - troponin elevated at 0.040, with CKMB 29. Troponins downtrended -ECHO unremarkable - continue aspirin and statin Type II diabetes - fingersticks q6 hours - insulin sliding scale Weight loss - CT chest shows no evidence of cance - obtain CT abdomen when stable Anemia - Hb 12. Likely dilutional from fluids 04/19: Chest x-ray showing new dense infiltrate and effusion in the right lung base. The patient remains on IV antibiotics as above. Continue vent management per pulmonology. Continue neurology work-up including MRIs. 04/20: The patient is awake and able to move all his extremities. He shook his head no to the idea of trach or PEG or any procedures to his back. Since his problem appears to be chronic, and the patient does not wish for intervention, we will defer MRI of the spine. Continue vent management per pulmonology. 04/21: Patient was extubated and is currently stable. No evidence of respiratory distress. He can be downgraded to medical when okay by pulmonology. The patient is wheelchair-bound at home. 04/22: Leukocytosis resolved. No signs of sepsis. Cultures are negative. I will discontinue IV Zosyn. Continue to wean off oxygen as tolerated. 04/23: The patient is clinically stable. We will order MRI of the spine as requested by neurology. Transfer to medical floor.
[2020-04-23] MEDS: Atorvastatin Calcium 40 MG TAB PO SCH (20:53)
[2020-04-24 05:47] LABS: #Eosinphils 0.1 thou/uL (0.0-0.7); #Lymphocytes 1.2 thou/uL (1.20-3.40); #Monocytes 0.9 thou/uL (0.11-0.59); #Neutrophils 4.9 thou/uL (1.40-6.50); %Basophils 0.2 % (0.0-1.0); %Lymphocytes 17.2 % (21.0-51.0); %Monocytes 13.1 % (0.0-10.0); %Neutrophils 67.6 % (42.0-75.0); Hemoglobin 10.6 g/dL (14.0-18.0); Mean Corpuscular HGB CONC 30.8 g/dL (32.0-36.0); Mean Corpuscular Hemoglobin 30.3 pg (27.0-31.0); Mean Corpuscular Volume 98.3 fL (78.0-98.0); Mean Platelet Volume 9.8 fL (7.4-10.4); Platelet Count 160 thou/uL (130-400); RBC Distribution Width 12.1 % (11.5-14.5); White Blood Cell (WBC) Count 7.2 thou/uL (4.8-10.8)
[2020-04-24 06:12] LABS: BUN (Urea Nitrogen) 6 mg/dL (8.4-25.7); Calc. Creatinine Clearance 190 mL/min (70-130); Calcium 7.6 mg/dL (7.8-10.44); Estimated GFR-MDRD Greater than 90; Glucose 93 mg/dL (80-115)
[2020-04-24 06:21] LABS: Anion Gap 10 mmol/L (10-20); Carbon Dioxide 40 mmol/L (23-31); Chloride 98 mmol/L (98-107); Potassium 3.6 mmol/L (3.5-5.1); Sodium 144 mmol/L (136-145)
[2020-04-24] MEDS: predniSONE 20 MG TAB PO SCH (08:46)
[2020-04-24] MEDS: Famotidine 20 MG TAB PO SCH ×2 (08:46→20:42)
[2020-04-24] MEDS: Enoxaparin Sodium 40 MG/0.4 ML SYRINGE SC SCH (08:47)
[2020-04-24] MEDS: Sodium Chloride 0.9% 1,000 ML IV SCH ×2 (08:47→14:56)
--- NOTE | 2020-04-24 09:10 | PRG ---
DATE OF SERVICE: 04/24/2020 SUBJECTIVE: Mr. Davison has no complaints. He is wonderfully pleasant as always. OBJECTIVE: VITAL SIGNS: He is afebrile, heart rate 71, respiratory rate is 19, oximetry is 100%, blood pressure is 117/66. LUNGS: Unchanged. HEART: Unchanged. ABDOMEN: Unchanged. IMPRESSION: Hypoventilation of unclear etiology. He cannot lie flat because of diaphragm dysfunction. In my opinion, I am concerned he has a neuromuscular process. It is not felt that he has myasthenia. I have seen Roula Burt's present in this fashion in the past. Hopefully, we can sort through this. Job ID: [id number]
--- NOTE | 2020-04-24 10:05 | PRG ---
DATE OF SERVICE: 04/23/2020 SUBJECTIVE: I will schedule him for cervical, thoracic, and lumbar spine MRI today. I was concerned that he would not be able to lie down for that, so I tried to set it up where he could have cervical 1 day, thoracic 1 day, and lumbar sacral spine another day. We were in the process of trying to get him down just for cervical spine MRI. He was placed at 15 degrees in his stretcher and by the time he got to the MRI machine, he said he could not breathe anymore. This is not typical for degenerative spinal disease in my opinion i.e. structural spine disease. I am still concerned that he has a neuromuscular problem such as myasthenia or Roula Gehrig disease. Unfortunately, in this hospital we only have electromyography or nerve conduction velocities. This probably needs to be part of his workup. We will continue to follow him. Probably, we will set him up for noninvasive ventilation at home. His blood gases on admission should qualify him for this. His last blood gas done on the night showed a CO2 of 51, a pH of 7.39, but that was when he was positive pressure ventilated in the ICU. We will order a blood gas in the morning just to see where he is equilibrating We will make contact with one of the medical equipment companies that does home mechanical ventilation. Plan to talk to Neurology about further workup. Job ID: [id number]
[2020-04-24] MEDS: ALPRAZolam 0.25 MG TAB PO PRN (15:44)
[2020-04-24] MEDS: Atorvastatin Calcium 40 MG TAB PO SCH (20:42)
[2020-04-24] MEDS ORDERED: Labetalol HCl 100 MG/20 ML VIAL SLOW IVP SCH (20:45)
--- NOTE | 2020-04-24 21:40 | PDOC.HOSPP ---
- Subjective Encounter Date: 04/24/20 Subjective: Patient was seen and examined. He is sitting in the bed and does not appear to be in any acute distress. - Objective Vital Signs & Weight: Vital Signs (12 hours) Temp Pulse Resp BP BP Pulse Ox 04/24/20 21:12 97.8 F 121 H 17 165/86 H 99 04/24/20 20:42 112 H 179/96 H 04/24/20 20:06 99 04/24/20 16:08 97.8 F 112 H 19 176/96 H 100 04/24/20 15:27 97.8 F 116 H 24 H 159/92 H 100 04/24/20 11:00 97.8 F 109 H 18 147/88 H 100 Weight Admit Weight 151 lb 3.794 oz Weight 185 lb 2 oz Most Recent Monitor Data Heart Rate from ECG 101 NIBP 116/66 NIBP BP-Mean 82 Respiration from ECG 4 SpO2 100 I&O: 04/23/20 04/24/20 04/25/20 06:59 06:59 06:59 Intake Total 1100 1720 Output Total 3050 1900 Balance -1950 -180 Result Diagrams: 04/24/20 05:30 04/24/20 05:30 Additional Labs: Accuchecks 04/24/20 04/24/20 04/24/20 20:09 16:06 11:49 POC Glucose 169 H 151 H 127 H 04/24/20 04/23/20 04:20 18:09 POC Glucose 72 150 H Hospitalist ROS - Medication Medications: Active Medications Generic Name Dose Route Start Last Admin Trade Name Freq PRN Reason Stop Dose Admin Alprazolam 0.125 mg 04/24/20 15:34 04/24/20 15:44 Xanax PO 0.125 mg BIDPRN PRN Administration Anxiety Atorvastatin Calcium 40 mg 04/16/20 21:00 04/24/20 20:42 Lipitor PO 40 mg HS JUAN Administration Enoxaparin Sodium 40 mg 04/22/20 09:00 04/24/20 08:47 Lovenox SC 40 mg 0900 JUAN Administration Famotidine 20 mg 04/21/20 21:00 04/24/20 20:42 Pepcid PO 20 mg BID JUAN Administration Sodium Chloride 1,000 mls @ 100 mls/hr 04/16/20 20:00 04/24/20 14:56 Normal Saline 0.9% IV 1,000 mls .Q10H JUAN Administration Insulin Human Lispro 0 units 04/16/20 20:03 04/20/20 23:04 Humalog SC 2 unit .MILD SLIDING SCALE PRN Administration Mild Correctional Scale Labetalol HCl 10 mg 04/24/20 20:45 04/24/20 20:42 Normodyne SLOW IVP 04/24/20 23:00 2 ml NOW JUAN Administration Prednisone 10 mg 04/22/20 09:00 04/24/20 08:46 Prednisone PO 10 mg DAILY JUAN Administration Sodium Chloride 10 ml 04/18/20 09:00 04/24/20 20:43 Flush - Normal Saline IVF 10 ml Q12HR JUAN Administration - Exam General Appearance: awake alert ENT: normocephalic atraumatic Neck: supple, no JVD Heart: RRR Respiratory: normal chest expansion, no tachypnea Neurological: cranial nerve grossly intact, no focal deficits Hosp A/P - Plan 04/18: Acute hypoxic/hypercapneic failure - possibly septic shock unknown source vs undiagnosed COPD exacerbation vs neuromuscular disease (like ALS?)/autoimmune disease - patient was found slumped at work. Found to have pH 7.1, PCO2 130. He was hypotensive as well. He is s/p intubation - blood cultures negative, UA+ but urine culture normal - discontinued vancomycin, continue zosyn. Continue IV steroids - syphilis negative. PITO pending. Neurology consulted due to possibility of neuromuscular disease or degenerative disease. Myasthenia antibodies ordered and pending Acute encephalopathy - likely due to acidosis - CT head normal , CTA head and neck no stenosis Metabolic alkalosis - improving, pH has improved to 7.5. Continue IV fluids Elevated troponin - troponin elevated at 0.040, with CKMB 29. Troponins downtrended -ECHO unremarkable - continue aspirin and statin Type II diabetes - fingersticks q6 hours - insulin sliding scale Weight loss - CT chest shows no evidence of cance - obtain CT abdomen when stable Anemia - Hb 12. Likely dilutional from fluids 04/19: Chest x-ray showing new dense infiltrate and effusion in the right lung base. The patient remains on IV antibiotics as above. Continue vent management per pulmonology. Continue neurology work-up including MRIs. 04/20: The patient is awake and able to move all his extremities. He shook his head no to the idea of trach or PEG or any procedures to his back. Since his problem appears to be chronic, and the patient does not wish for intervention, we will defer MRI of the spine. Continue vent management per pulmonology. 04/21: Patient was extubated and is currently stable. No evidence of respiratory distress. He can be downgraded to medical when okay by pulmonology. The patient is wheelchair-bound at home. 04/22: Leukocytosis resolved. No signs of sepsis. Cultures are negative. I will discontinue IV Zosyn. Continue to wean off oxygen as tolerated. 04/23: The patient is clinically stable. We will order MRI of the spine as requested by neurology. Transfer to medical floor. 04/24: The patient's respiratory status is stable today. MRI of the spine was not performed reportedly due to the patient unable to breathing well while laying flat.
[2020-04-25] MEDS: Sodium Chloride 0.9% 1,000 ML IV SCH ×2 (03:42→14:59)
[2020-04-25 06:12] LABS: Hemoglobin 10.5 g/dL (14.0-18.0); Mean Corpuscular Hemoglobin 29.9 pg (27.0-31.0); Mean Corpuscular Volume 96.6 fL (78.0-98.0); Mean Platelet Volume 9.9 fL (7.4-10.4); Platelet Count 168 thou/uL (130-400); RBC Distribution Width 11.9 % (11.5-14.5); White Blood Cell (WBC) Count 6.7 thou/uL (4.8-10.8)
[2020-04-25 06:15] LABS: Band 2 % (5-11); Eosinophils 2 % (0-10); Lymphocytes 19 % (21-51); MDiff Complete? YES; Monocytes 15 % (0-10); Neutrophil 61 % (42-75); Reactive Lymphocytes 1 % (0-10)
[2020-04-25 06:21] LABS: BUN (Urea Nitrogen) 4 mg/dL (8.4-25.7); Calc. Creatinine Clearance 179 mL/min (70-130); Calcium 7.7 mg/dL (7.8-10.44); Estimated GFR-MDRD Greater than 90; Glucose 118 mg/dL (80-115)
[2020-04-25 06:29] LABS: Anion Gap 12 mmol/L (10-20); Chloride 94 mmol/L (98-107); Potassium 3.5 mmol/L (3.5-5.1); Sodium 144 mmol/L (136-145)
[2020-04-25 06:32] LABS: Carbon Dioxide 42 mmol/L (23-31)
[2020-04-25] MEDS ORDERED: Potassium Chloride 20 MEQ TAB PO SCH (07:15)
[2020-04-25] MEDS: Enoxaparin Sodium 40 MG/0.4 ML SYRINGE SC SCH (09:01)
[2020-04-25] MEDS: Famotidine 20 MG TAB PO SCH ×2 (09:01→20:48)
[2020-04-25] MEDS: predniSONE 20 MG TAB PO SCH (09:01)
--- NOTE | 2020-04-25 11:06 | PDOC.HOSPP ---
- Subjective Encounter Date: 04/25/20 Subjective: The patient was seen and examined. I discussed the the need for MRI of the spine to determine the underlying etiology of his weakness. Due to his inability to lay flat and breathe normally this might need to be done under sedation. The patient is not excited about the test and stated that he is not interested in any back procedures even if an abnormality is found. He stated that he was able to ambulate with a walker at home and would like to try to work with physical therapy. - Objective Vital Signs & Weight: Vital Signs (12 hours) Temp Pulse Resp BP Pulse Ox 04/25/20 07:57 98.2 F 95 16 132/82 95 04/25/20 05:03 97.6 F 86 19 128/83 100 04/25/20 02:13 82 20 100 04/25/20 00:54 97.8 F 96 18 154/77 H 100 Weight Admit Weight 151 lb 3.794 oz Weight 185 lb 8 oz Most Recent Monitor Data Heart Rate from ECG 101 NIBP 116/66 NIBP BP-Mean 82 Respiration from ECG 4 SpO2 100 I&O: 04/24/20 04/25/20 04/26/20 06:59 06:59 06:59 Intake Total 1100 2820 Output Total 3050 3600 850 Balance -5682 -425 -768 Result Diagrams: 04/25/20 05:36 04/25/20 05:36 Additional Labs: Accuchecks 04/25/20 04/24/20 04/24/20 04:22 20:09 16:06 POC Glucose 130 H 169 H 151 H 04/24/20 11:49 POC Glucose 127 H Hospitalist ROS - Medication Medications: Active Medications Generic Name Dose Route Start Last Admin Trade Name Freq PRN Reason Stop Dose Admin Alprazolam 0.125 mg 04/24/20 15:34 04/24/20 15:44 Xanax PO 0.125 mg BIDPRN PRN Administration Anxiety Atorvastatin Calcium 40 mg 04/16/20 21:00 04/24/20 20:42 Lipitor PO 40 mg HS JUAN Administration Enoxaparin Sodium 40 mg 04/22/20 09:00 04/25/20 09:01 Lovenox SC 40 mg 0900 JUAN Administration Famotidine 20 mg 04/21/20 21:00 04/25/20 09:01 Pepcid PO 20 mg BID JUAN Administration Sodium Chloride 1,000 mls @ 100 mls/hr 04/16/20 20:00 04/25/20 03:42 Normal Saline 0.9% IV 1,000 mls .Q10H JUAN Administration Insulin Human Lispro 0 units 04/16/20 20:03 04/20/20 23:04 Humalog SC 2 unit .MILD SLIDING SCALE PRN Administration Mild Correctional Scale Prednisone 10 mg 04/22/20 09:00 04/25/20 09:01 Prednisone PO 10 mg DAILY JUAN Administration Sodium Chloride 10 ml 04/18/20 09:00 04/25/20 09:02 Flush - Normal Saline IVF Not Given Q12HR JUAN - Exam General Appearance: awake alert ENT: normocephalic atraumatic Neck: supple, no JVD Heart: RRR Respiratory: normal chest expansion, no tachypnea Extremities: no cyanosis Neurological: cranial nerve grossly intact, no new deficit Hosp A/P - Plan Acute hypoxic/hypercapneic failure Acute encephalopathy Metabolic alkalosis Elevated troponin Type II diabetes Weight loss Anemia Aspiration pneumonia. Acute on chronic respiratory failure with hypoxia and hypercarbia likely due to diaphragmatic dysfunction. Patient does have weakness of his upper and lower extremities. The exact etiology is still unknown. Neurology recommending MRI of the spine. This test to be done under sedation as the patient is unable to lay flat. The patient has not agreed to the test yet. Right lung base infiltrates could be due to aspiration pneumonia. The patient completed a course of Zosyn. No evidence of sepsis at this time. PT and OT evaluation.
[2020-04-25 11:07] LABS: Actual Bicarbonate (HCO3a) 47.5 mEq/L (22-28); Base Excess (BEa) 18.5 mEq/L (-2.0 to +3.0); Calcium, Ionized (arterial) 1.13 mmol/L (1.12-1.30); Carboxyhemoglobin (COHb) 0.8 gm% (0.0-3.0); Hemoglobin (Hb) 12.2 g/dL (14.0-18.0); O2 Tension (PaO2), arterial 82.5 mmHg (> 80.0); Potassium - ABG Lab 3.41 mmol/L (3.70-5.30); pH, Arterial 7.39 (7.35-7.45)
[2020-04-25 11:11] LABS: Puncture Site RRA
--- NOTE | 2020-04-25 15:33 | PRG ---
DATE OF SERVICE: 04/25/2020 SUBJECTIVE: Sudeep Davison remains stable. Hemodynamics are stable. He is afebrile. OBJECTIVE: VITAL SIGNS: Blood pressure 149/92, heart rate is 108, respiratory rate is 18. LUNGS: Clear. HEART: Regular rhythm. ABDOMEN: Soft. LABORATORY DATA: PH today 7.39, CO2 of 81, pO2 of 82. 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 I do not feel simple CPAP would benefit him. Nocturnal noninvasive ventilation and p.r.n. noninvasive ventilation are absolutely essential for his survival. We would not be surprised at this time that he does show us that he has progressive Roula Gehrig or some sort of neuromuscular disease. I doubt this is chronic immune demyelinating polyneuropathy. It would be nice to get some testing done to determine whether or not it is likely that he has Roula Gehrig disease. From what I can tell, Neurology may have signed off and they really should be reconsulted. This is not simple chronic obstructive pulmonary disease or obesity hypoventilation. This is hypoventilation secondary to a neuromuscular process in my opinion. Job ID: [id number]
[2020-04-25] MEDS: Atorvastatin Calcium 40 MG TAB PO SCH (20:48)
[2020-04-26 05:51] LABS: BUN (Urea Nitrogen) Less than 4 mg/dL (8.4-25.7); Calc. Creatinine Clearance 183 mL/min (70-130); Calcium 8.3 mg/dL (7.8-10.44); Estimated GFR-MDRD Greater than 90; Glucose 106 mg/dL (80-115)
[2020-04-26 06:05] LABS: Anion Gap 13 mmol/L (10-20); Chloride 92 mmol/L (98-107); Potassium 3.7 mmol/L (3.5-5.1); Sodium 144 mmol/L (136-145)
[2020-04-26 06:12] LABS: Carbon Dioxide 43 mmol/L (23-31)
[2020-04-26] MEDS: Sodium Chloride 0.9% 1,000 ML IV SCH ×2 (06:13→11:18)
[2020-04-26 07:01] LABS: Hemoglobin 11.4 g/dL (14.0-18.0); Mean Corpuscular Hemoglobin 30.2 pg (27.0-31.0); Mean Corpuscular Volume 97.6 fL (78.0-98.0); Mean Platelet Volume 9.7 fL (7.4-10.4); Platelet Count 187 thou/uL (130-400); RBC Distribution Width 12.1 % (11.5-14.5); Red Blood Cell (RBC) Count 3.79 mill/uL (4.70-6.10); White Blood Cell (WBC) Count 6.7 thou/uL (4.8-10.8)
[2020-04-26 08:27] LABS: Band 2 % (5-11); Eosinophils 3 % (0-10); Lymphocytes 25 % (21-51); MDiff Complete? YES; Monocytes 5 % (0-10); Neutrophil 65 % (42-75)
[2020-04-26] MEDS: Famotidine 20 MG TAB PO SCH ×2 (09:07→21:10)
[2020-04-26] MEDS: predniSONE 20 MG TAB PO SCH (09:07)
[2020-04-26] MEDS: Enoxaparin Sodium 40 MG/0.4 ML SYRINGE SC SCH (09:07)
--- NOTE | 2020-04-26 11:50 | RAD ---
Exam: Chest one view HISTORY:Tachycardia Comparison: 04/23/2020 FINDINGS: Cardiac silhouette:Left or right heart border are obscured due to bibasilar pleural effusions with ad jacent parenchymal changes. Aorta: Unremarkable Pulmonary vessels: Normal Costophrenic angles: Bibasilar pleural effusion LUNGS: Bibasilar parenchymal changes. Diminished lung volumes, likely due to a poor 3 effort Lines and tubes: Stable right-sided vascular catheter. Pneumothorax: None Osseous abnormalities: None IMPRESSION: Bibasilar pleural and parenchymal changes
--- NOTE | 2020-04-26 14:36 | PRG ---
DATE OF SERVICE: 04/26/2020 SUBJECTIVE: Sudeep Davison has no new complaints. OBJECTIVE: VITAL SIGNS: He is afebrile. Heart rate is 112, respiratory rate is 16, oximetry is 100%, blood pressure is 154/90. LUNGS: Clear. HEART: Regular rhythm. ABDOMEN: Soft. IMPRESSION AND PLAN: Chronic hypoventilation secondary to diaphragm weakness? secondary to neuromuscular process. Chest x-ray shows bibasilar atelectasis, which is not unexpected. Neurology needs to be reconsulted on Tuesday to set up a workup for Roula Gehrig's in my opinion. I would think he would need nerve conduction studies and electromyography. I do not feel that his diaphragm weakness is secondary to a structural cervical spine problem. Certainly, could go down for a CT scan of his neck with BiPAP in place, so the cervical CT can be done quickly. It is not as good as MRI imaging, but he clearly cannot lie down flat for an MRI. Job ID: [id number]
--- NOTE | 2020-04-26 17:07 | PDOC.HOSPP ---
- Subjective Encounter Date: 04/26/20 Encounter Time: 13:00 Subjective: The patient is doing well. NO cough or SOB. The patient states he is tired of sitting in bed and that's all he does all day. He would love to get out of bed. - Objective Vital Signs & Weight: Vital Signs (12 hours) Temp Pulse Resp BP Pulse Ox 04/26/20 11:20 95 22 H 97 04/26/20 08:00 100 04/26/20 07:45 97.7 F 113 H 16 154/90 H 100 Weight Admit Weight 151 lb 3.794 oz Weight 185 lb 8 oz Most Recent Monitor Data Heart Rate from ECG 101 NIBP 116/66 NIBP BP-Mean 82 Respiration from ECG 4 SpO2 100 I&O: 04/25/20 04/26/20 04/27/20 06:59 06:59 06:59 Intake Total 2820 Output Total 3600 5150 1800 Balance -780 -5150 -1800 Result Diagrams: 04/26/20 05:21 04/26/20 05:21 Additional Labs: Accuchecks 04/26/20 04/26/20 04/26/20 16:23 11:43 05:09 POC Glucose 170 H 146 H 98 04/25/20 20:17 POC Glucose 145 H Hospitalist ROS - Review of Systems Constitutional: denies: fever, chills - Medication Medications: Active Medications Generic Name Dose Route Start Last Admin Trade Name Freq PRN Reason Stop Dose Admin Alprazolam 0.125 mg 04/24/20 15:34 04/24/20 15:44 Xanax PO 0.125 mg BIDPRN PRN Administration Anxiety Atorvastatin Calcium 40 mg 04/16/20 21:00 04/25/20 20:48 Lipitor PO 40 mg HS JUAN Administration Enoxaparin Sodium 40 mg 04/22/20 09:00 04/26/20 09:07 Lovenox SC 40 mg 0900 JUAN Administration Famotidine 20 mg 04/21/20 21:00 04/26/20 09:07 Pepcid PO 20 mg BID JUAN Administration Insulin Human Lispro 0 units 04/16/20 20:03 04/20/20 23:04 Humalog SC 2 unit .MILD SLIDING SCALE PRN Administration Mild Correctional Scale Prednisone 10 mg 04/22/20 09:00 04/26/20 09:07 Prednisone PO 10 mg DAILY JUAN Administration Sodium Chloride 10 ml 04/18/20 09:00 04/26/20 09:08 Flush - Normal Saline IVF Not Given Q12HR JUAN - Exam General Appearance: NAD, awake alert Eye: PERRL, anicteric sclera ENT: normocephalic atraumatic, no oropharyngeal lesions Neck: no JVD Heart: RRR, no murmur, no gallops, no rubs Respiratory: CTAB, no wheezes, no rales, no ronchi Gastrointestinal: soft, non-tender, non-distended, normal bowel sounds Extremities: no cyanosis, no clubbing, no edema Skin: normal turgor, no lesions, no rashes Neurological: cranial nerve grossly intact, normal sensation to touch, no focal deficits, no new deficit Musculoskeletal: normal tone, no muscle wasting Musculoskeletal - other findings: has full range of motion of upper and lower extremities Psychiatric: A&O x 3 Hosp A/P - Plan Echo - mild mitral regurg, mild tricuspid regurg, normal EF at 60-65% This is a 69 year old male with past medical history of diabetes, who presented to the ER with acute onset respiratory failure ECHO: EF 60-65%, mild MR, mild Tr Chest X ray: normal CTA chest: no PE CTA head/neck: no stenosis CT brain: no hemorrhage This is a 69 year old male with unknown past medical history except diabetes who was brought in after he was found slumped over at work. He was found to be hypercapneic and hypotensive and required intubation Acute hypoxic/hypercapneic failure - possibly septic shock unknown source vs undiagnosed COPD exacerbation vs neuromuscular disease (like ALS?)/autoimmune disease - patient was found slumped at work. Found to have pH 7.1, PCO2 130. He was hypotensive as well. He is s/p intubation and extubation - blood cultures negative, urine culture normal. He has finished course of IV zosyn 04/17 to 04/22. He is of pressors and has been weaned to oral steroids. Syphilis and PITO negative - there is concern for underlying neuromuscular disease. EMG can only be done outpatient per neuro. Patient is unable to lay flat for MRI. Will obtain CT cervical/thoracic and lumbar spine - after discussion with pulmonary, will see if [facility] in [place] can do any additional workup as inpatient Metabolic alkalosis - resolved - will stop IV fluids Elevated troponin - troponin elevated at 0.040, with CKMB 29. Troponins downtrended -ECHO unremarkable - continue aspirin and statin Acute encephalopathy - resolved Type II diabetes - fingersticks q6 hours - insulin sliding scale Weight loss - CT chest shows no evidence of cancer Anemia - Hb 12. Likely dilutional from fluids
--- NOTE | 2020-04-26 17:49 | PDOC.HOSPP ---
- Subjective Encounter Date: 04/26/20 Subjective: NEUROLOGY PROGRESS NOTE Patient alert, awake and following commands appropriately. Concern about neuromuscular disease. MG ruled out. As stated in my last note on 04/22/2020, ALS is a possibility but no clear signs and no fasciculation on examination. However, as patient was getting better I suggested outpatient work up for ALS with NCS/EMG on 04/22/2020. Since patient continued to have diaphragmatic weakness, consider transfer to a different facility which has the capability of performing EMG/NCS inpatient and further evaluation with diaphragmatic EMG to evaluate for ALS. We do not have the capability to perform these tests as inpatient at [facility]. Cervical spine imaging was only to evaluate for falls and gait issues but not intended to evaluate for diaphragmatic weakness and can be done later. The plan was communicated to the primary Attending Dr. Li around 8:15 am 04/26 with option to transfer to another facility for further testing for ALS since he is unstable for discharge to pursue outpatient testing and we do not have the capability to perform inpatient EMG/NCS testing .. - Objective Vital Signs & Weight: Vital Signs (12 hours) Temp Pulse Resp BP Pulse Ox 04/26/20 16:20 114 H 26 H 155/90 H 100 04/26/20 11:20 95 22 H 97 04/26/20 08:00 100 04/26/20 07:45 97.7 F 113 H 16 154/90 H 100 Weight Admit Weight 151 lb 3.794 oz Weight 185 lb 8 oz Most Recent Monitor Data Heart Rate from ECG 101 NIBP 116/66 NIBP BP-Mean 82 Respiration from ECG 4 SpO2 100 I&O: 04/25/20 04/26/20 04/27/20 06:59 06:59 06:59 Intake Total 2820 Output Total 3600 5150 1235 Balance -618 -0072 -1800 Result Diagrams: 04/26/20 05:21 04/26/20 05:21 Additional Labs: Accuchecks 04/26/20 04/26/20 04/26/20 16:23 11:43 05:09 POC Glucose 170 H 146 H 98 04/25/20 20:17 POC Glucose 145 H Radiology Reviewed by me: Yes EKG Reviewed by me: Yes Hospitalist ROS - Review of Systems Constitutional: denies: fever, chills, sweats, weakness, malaise, other Eyes: denies: pain, vision change, conjunctivae inflammation, eyelid inflammation, redness, other ENT: denies: ear pain, ear discharge, nose pain, nose discharge, nose congestion , mouth pain, mouth swelling, throat pain, throat swelling, other Respiratory: reports: shortness of breath, SOB with excertion Cardiovascular: denies: chest pain, palpitations, orthopnea, paroxysmal noc. dyspnea, edema, light headedness, other Gastrointestinal: denies: nausea, vomiting, abdominal pain, diarrhea, constipation, melena, hematochezia, other Genitourinary: denies: dysuria, frequency, incontinence, hematuria, retention, other Musculoskeletal: denies: neck pain, shoulder pain, arm pain, back pain, hand pain, leg pain, foot pain, other Skin: denies: rash, lesions, janki, bruising, other Neurological: denies: weakness, numbness, incoordination, change in speech, confusion, seizures, other - Medication Medications: Active Medications Generic Name Dose Route Start Last Admin Trade Name Freq PRN Reason Stop Dose Admin Alprazolam 0.125 mg 04/24/20 15:34 04/24/20 15:44 Xanax PO 0.125 mg BIDPRN PRN Administration Anxiety Atorvastatin Calcium 40 mg 04/16/20 21:00 04/25/20 20:48 Lipitor PO 40 mg HS JUAN Administration Enoxaparin Sodium 40 mg 04/22/20 09:00 04/26/20 09:07 Lovenox SC 40 mg 0900 JUAN Administration Famotidine 20 mg 04/21/20 21:00 04/26/20 09:07 Pepcid PO 20 mg BID JUAN Administration Insulin Human Lispro 0 units 04/16/20 20:03 04/20/20 23:04 Humalog SC 2 unit .MILD SLIDING SCALE PRN Administration Mild Correctional Scale Prednisone 10 mg 04/22/20 09:00 04/26/20 09:07 Prednisone PO 10 mg DAILY JUAN Administration Sodium Chloride 10 ml 04/18/20 09:00 04/26/20 09:08 Flush - Normal Saline IVF Not Given Q12HR JUAN - Exam General Appearance: awake alert Eye: PERRL ENT: normocephalic atraumatic Neck: supple Heart: RRR Respiratory: CTAB Gastrointestinal: soft Extremities: no cyanosis Skin: normal turgor Neurological: cranial nerve grossly intact Musculoskeletal: normal tone Psychiatric: normal affect, normal behavior, A&O x 3 Hosp A/P (1) Generalized weakness Code(s): R53.1 - WEAKNESS Status: Acute (2) Hypercapnic respiratory failure Code(s): J96.92 - RESPIRATORY FAILURE, UNSPECIFIED WITH HYPERCAPNIA Status: Acute - Plan PT/OT, speech therapy, DVT proph w/SCDs 69 year old consulted for lower extremity weakness and recent falls . There is also a concern about neuromuscular due to diaphragmatic weakness. Patient denies progressive fatigue during the day, diplopia , or difficulty in swallowing. Neurological examination was negative for ptosis and was unable to elicit ptosis on examination. He does have generalized weakness. AchR antibodies negative No muscle fasiculations noted on examination. No clear clinical symptoms or signs of ALS. Continued diaphragmatic weakness places ALS on the differential. Suggested outpatient EMG /NCS in my last note since patient was doing better. However, since he continues to have diaphragmatic weakness consider transfer to the facility which has the capability to perform inpatient EMG/NCS and also diaphragmatic EMG to further evaluate for ALS. Unfortunately, we do not have the capability to perform EMG as inpatient at our facility. Spine MRI were recommended to evaluate for ongoing gait issues and extremities weakness but not for diaphragmatic weakness Neurochecks every 4 hours. PT/OT/Speech. Continue home medications. Continue medical management per primary team Plan was communicated to Dr. Garvey this morning with consideration for possible transfer to further evaluate for ALS and also with the nursing staff during the rounds.
--- NOTE | 2020-04-26 17:51 | EKG ---
Test Reason : Blood Pressure : / mmHG Vent. Rate : 109 BPM Atrial Rate : 109 BPM P-R Int : 200 ms QRS Dur : 104 ms QT Int : 330 ms P-R-T Axes : 053 -57 058 degrees QTc Int : 444 ms Sinus tachycardia Possible Left atrial enlargement Incomplete right bundle branch block Left anterior fascicular block Possible Lateral infarct , age undetermined Abnormal ECG Confirmed by TIFFANY AGUILAR ([id number]), editor publications LG MELTON ([id number]) on 04/26/2020 5:50:27 PM Referred By: Confirmed By:TIFFANY AGUILAR
[2020-04-26] MEDS: Atorvastatin Calcium 40 MG TAB PO SCH (21:10)
[2020-04-27] MEDS: ALPRAZolam 0.25 MG TAB PO PRN (01:11)
[2020-04-27 05:13] LABS: Band 2 % (5-11); Eosinophils 2 % (0-10); Hemoglobin 10.9 g/dL (14.0-18.0); Lymphocytes 20 % (21-51); MDiff Complete? YES; Mean Corpuscular HGB CONC 30.7 g/dL (32.0-36.0); Mean Corpuscular Hemoglobin 29.9 pg (27.0-31.0); Mean Corpuscular Volume 97.4 fL (78.0-98.0); Mean Platelet Volume 9.6 fL (7.4-10.4); Monocytes 13 % (0-10); Neutrophil 62 % (42-75); Platelet Count 189 thou/uL (130-400); Platelet Morphology Comment Appears Adequate; RBC Distribution Width 12.2 % (11.5-14.5); Reactive Lymphocytes 1 % (0-10); Red Blood Cell (RBC) Count 3.63 mill/uL (4.70-6.10); White Blood Cell (WBC) Count 6.1 thou/uL (4.8-10.8)
[2020-04-27 05:17] LABS: BUN (Urea Nitrogen) 5 mg/dL (8.4-25.7); Calc. Creatinine Clearance 172 mL/min (70-130); Calcium 8.2 mg/dL (7.8-10.44); Estimated GFR-MDRD Greater than 90; Glucose 109 mg/dL (80-115)
[2020-04-27 05:26] LABS: Anion Gap 12 mmol/L (10-20); Chloride 93 mmol/L (98-107); Potassium 3.7 mmol/L (3.5-5.1); Sodium 145 mmol/L (136-145)
[2020-04-27 05:28] LABS: Carbon Dioxide 44 mmol/L (23-31)
[2020-04-27] MEDS: Famotidine 20 MG TAB PO SCH ×2 (09:24→19:44)
[2020-04-27] MEDS: predniSONE 20 MG TAB PO SCH (09:25)
[2020-04-27] MEDS: Enoxaparin Sodium 40 MG/0.4 ML SYRINGE SC SCH (09:26)
--- NOTE | 2020-04-27 11:50 | RAD ---
CHEST 1 VIEW: HISTORY: Orthopnea. COMPARISON: 04/26/2020. FINDINGS: Right central line in place. Again noted are bilateral vascular congestive changes and alveolar alexandro hilar and lower lung zone opacity changes with bilateral pleural effusions and prominent size heart. No significant new process. IMPRESSION: Overall stable bilateral alveolar opacity changes and evidence for pleural effusion. Continued short -term followup. POS: OFF
--- NOTE | 2020-04-27 13:06 | PDOC.HOSPP ---
- Subjective Encounter Date: 04/27/20 Encounter Time: 13:06 Subjective: The patient has no complaints. He is sitting up in bed. He was unable to lay flat for CT scan due to shortness of breath. He denies cough. The patient is frustrated and wants to go home - Objective Vital Signs & Weight: Vital Signs (12 hours) Temp Pulse Resp BP Pulse Ox 04/27/20 08:00 100 04/27/20 07:52 97.7 F 106 H 16 142/89 H 100 04/27/20 06:57 100 04/27/20 04:00 97.6 F 98 18 131/82 100 Weight Admit Weight 151 lb 3.794 oz Weight 169 lb 2 oz Most Recent Monitor Data Heart Rate from ECG 101 NIBP 116/66 NIBP BP-Mean 82 Respiration from ECG 4 SpO2 100 I&O: 04/26/20 04/27/20 04/28/20 06:59 06:59 06:59 Intake Total 240 Output Total 5150 4450 Balance -5150 -4450 240 Result Diagrams: 04/27/20 04:50 04/27/20 04:50 Additional Labs: Accuchecks 04/27/20 04/27/20 04/26/20 11:51 05:01 20:26 POC Glucose 126 H 98 178 H 04/26/20 16:23 POC Glucose 170 H Hospitalist ROS - Review of Systems Constitutional: denies: fever, chills - Medication Medications: Active Medications Generic Name Dose Route Start Last Admin Trade Name Freq PRN Reason Stop Dose Admin Alprazolam 0.125 mg 04/24/20 15:34 04/27/20 01:11 Xanax PO 0.125 mg BIDPRN PRN Administration Anxiety Atorvastatin Calcium 40 mg 04/16/20 21:00 04/26/20 21:10 Lipitor PO 40 mg HS JUAN Administration Enoxaparin Sodium 40 mg 04/22/20 09:00 04/27/20 09:26 Lovenox SC 40 mg 0900 JUAN Administration Famotidine 20 mg 04/21/20 21:00 04/27/20 09:24 Pepcid PO 20 mg BID JUAN Administration Insulin Human Lispro 0 units 04/16/20 20:03 04/20/20 23:04 Humalog SC 2 unit .MILD SLIDING SCALE PRN Administration Mild Correctional Scale Prednisone 10 mg 04/22/20 09:00 04/27/20 09:25 Prednisone PO 10 mg DAILY JUAN Administration Sodium Chloride 10 ml 04/18/20 09:00 04/27/20 09:26 Flush - Normal Saline IVF 10 ml Q12HR JUAN Administration - Exam General Appearance: NAD, awake alert General - other findings: on 2L nasal cannula Eye: PERRL, anicteric sclera ENT: normocephalic atraumatic, no oropharyngeal lesions Neck: no JVD Heart: RRR, no murmur, no gallops, no rubs Respiratory: CTAB, no wheezes, no rales, no ronchi Gastrointestinal: soft, non-tender, non-distended, normal bowel sounds Extremities: no cyanosis, no clubbing, no edema Skin: normal turgor, no lesions, no rashes Neurological: cranial nerve grossly intact, normal sensation to touch, no weakness Musculoskeletal: normal tone, normal strength, no muscle wasting Psychiatric: normal affect, normal behavior, A&O x 3 Hosp A/P - Plan Echo - mild mitral regurg, mild tricuspid regurg, normal EF at 60-65% Chest Xray: bilateral alveolar opacity This is a 69 year old male with past medical history of diabetes, who presented to the ER with acute onset respiratory failure ECHO: EF 60-65%, mild MR, mild Tr Chest X ray: normal CTA chest: no PE CTA head/neck: no stenosis CT brain: no hemorrhage This is a 69 year old male with unknown past medical history except diabetes who was brought in after he was found slumped over at work. He was found to be hypercapneic and hypotensive and required intubation Acute hypoxic/hypercapneic failure - possibly septic shock from pneumonia vs neuromuscular disease (like ALS?) - patient was found slumped at work. Found to have pH 7.1, PCO2 130. He was hypotensive as well. He is s/p intubation and extubation - blood cultures negative, urine culture normal. He has finished course of IV zosyn 04/17 to 04/22. He is off pressors and has been weaned to oral steroids. Syphilis and PITO negative - neurologic workup for spinal pathology including MRI unable to be done since patient can't lay flat. Repeat attempt with CT done today but patient couldn't lay flat. [facility] does not have EMG inpatient, will try [facility] tomorrow since they seem to have EMG inpatient. -Attempt to repeat spinal imaging with patient wearing BIPAP and try just cervical spine imaging first - chest X ray 04/27 shows bilateral alveolar opacities possible pleural effusion. Will try one dose IV diamox for diuresis Metabolic alkalosis - - chronic from hypercapnea. Stopped IV fluids - will try IV diamox Elevated troponin - troponin elevated at 0.040, with CKMB 29. Troponins downtrended -ECHO unremarkable - continue aspirin and statin Acute encephalopathy - resolved Type II diabetes - fingersticks q6 hours - insulin sliding scale Weight loss - CT chest shows no evidence of cancer Anemia - Hb 12. Likely dilutional from fluids
[2020-04-27] MEDS ORDERED: acetaZOLAMIDE Sodium 500 mg Vial IVP SCH ×2 (13:15→14:00)
[2020-04-27] MEDS ORDERED: Sterile Water 10 ML VIAL IVP SCH (14:00)
--- NOTE | 2020-04-27 15:11 | PRG ---
DATE OF SERVICE: 04/27/2020 SUBJECTIVE: Mr. Davison is awaken from sleep and clinically appeared to be hypercarbic. It took a while for me with repeated stimulation to get him awake enough, where he could answer questions and tell me where he was. Transferred him to the intermediate care unit by the time he got downstairs, which is about 30 minutes later, he looked much better. I have instructed the nurses to have him wear his BiPAP whenever he sleeps. I am told by Respiratory he has not been wearing it all night. This is the first I have heard that. OBJECTIVE: VITAL SIGNS: He is afebrile, heart rate is 108, respiratory rate is 18, oximetry is 97, blood pressure 129/78. LUNGS: Clear. HEART: Regular rhythm. ABDOMEN: Soft. LABORATORY DATA: White count 6.1, hemoglobin 10.9, platelets 189. Sodium 145, potassium 3.7, chloride 93, bicarb 44, BUN 5, creatinine 0.49. 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 Unfortunately, we are not capable of working up Roula Gehrig disease at this hospital or treating CIDP if he has either of these illnesses. Attempts are being made to transfer him. I will see if we can get a negative inspiratory force on him, but I am suspecting it is going to be -10 to -15 at best. Job ID: [id number]
--- NOTE | 2020-04-27 17:33 | PDOC.EVN ---
Event Note - Event Note Event Note: Discussed plan with . She states she would prefer a facility closer to [place] or [place] and really does not want patient to go to [place] if there is bed there, but agreeable to it if he will be only be there for a few days but otherwise would like him to come cloth mercerizer back tender to where she is She states she will think about this tonight and discuss again tomorrow
[2020-04-27] MEDS: Atorvastatin Calcium 40 MG TAB PO SCH (19:44)
[2020-04-28 05:00] LABS: BUN (Urea Nitrogen) 8 mg/dL (8.4-25.7); Calc. Creatinine Clearance 148 mL/min (70-130); Calcium 8.5 mg/dL (7.8-10.44); Estimated GFR-MDRD Greater than 90; Glucose 141 mg/dL (80-115)
[2020-04-28 05:09] LABS: Eosinophils 2 % (0-10); Hemoglobin 10.3 g/dL (14.0-18.0); Lymphocytes 21 % (21-51); MDiff Complete? YES; Mean Corpuscular HGB CONC 30.5 g/dL (32.0-36.0); Mean Corpuscular Hemoglobin 30.2 pg (27.0-31.0); Mean Corpuscular Volume 98.8 fL (78.0-98.0); Mean Platelet Volume 9.1 fL (7.4-10.4); Monocytes 11 % (0-10); Neutrophil 66 % (42-75); Platelet Count 187 thou/uL (130-400); RBC Distribution Width 12.1 % (11.5-14.5); Red Blood Cell (RBC) Count 3.41 mill/uL (4.70-6.10); White Blood Cell (WBC) Count 5.6 thou/uL (4.8-10.8)
[2020-04-28 05:21] LABS: Anion Gap 12 mmol/L (10-20); Chloride 94 mmol/L (98-107); Potassium 3.9 mmol/L (3.5-5.1); Sodium 143 mmol/L (136-145)
[2020-04-28 05:26] LABS: Carbon Dioxide 41 mmol/L (23-31)
--- NOTE | 2020-04-28 08:27 | PRG ---
DATE OF SERVICE: 04/28/2020 SUBJECTIVE: Mr. Davison slept with BiPAP. He says he feels better with this. OBJECTIVE: VITAL SIGNS: He is afebrile. Heart rate is 92, blood pressure 114/64, respiratory rate is in the teens. LUNGS: Clear. HEART: Regular rhythm. ABDOMEN: Soft. LABORATORY DATA: White count 5.6, hemoglobin 10.3, platelets 187. Sodium 143, potassium 3.9, chloride 94, bicarb 41, BUN 8, and creatinine 0.52. IMPRESSION: [id number] respiratory failure secondary most likely to a neuromuscular disease. Referral to a center that is capable of working up acute neurological/neuromuscular weakness is appropriate in my opinion. He would have to be transferred sitting up on the stretcher since he cannot breathe lying down. He has said he does not want a tracheostomy, but he clearly needs intermittent nocturnal noninvasive ventilation. Job ID: [id number]
[2020-04-28] MEDS: Enoxaparin Sodium 40 MG/0.4 ML SYRINGE SC SCH (11:03)
[2020-04-28] MEDS: predniSONE 20 MG TAB PO SCH (11:03)
[2020-04-28] MEDS: Famotidine 20 MG TAB PO SCH ×2 (11:03→19:58)
--- NOTE | 2020-04-28 14:04 | CT ---
CTA HEAD WITH AND WITHOUT CONTRAST: 04/16/20 Axial tomograms obtained through the head without IV contrast. This is followed by CTA of the head [facility] angio protocol with multiplanar reconstruction and 3D postprocessing. INDICATION: Altered mental status. CT HEAD WITHOUT CONTRAST: Ventricles have normal size and position. There is no evidence of intracranial mass, hemorrhage or in farct. Sinuses and mastoids are clear. IMPRESSION: No acute finding. CTA HEAD: The intracranial internal carotid arteries are patent. Anterior cerebral arteries are patent. Middle cerebral arteries appear patent and symmetric. Basilar arteries patent. Posterior cerebral arteries a re patent and symmetric. The visualized vertebral arteries are patent. IMPRESSION: Unremarkable CTA of head. CTA NECK: INDICATIONS: Altered mental status. Axial tomograms obtained with multiplanar reconstruction and 3D postprocessing. FINDINGS: Common carotid arteries are patent and symmetric. Carotid bifurcation is patent with minimal atherosclerotic change. There is no evidence of internal c arotid artery stenosis. Vertebral arteries are patent and symmetric. Soft tissues reveal mildly heterogeneous and enlarged thyroid gland. There are secretions seen in the posterior oropharynx and hypopharynx surrounding the NG tube. IMPRESSION: Unremarkable CTA neck.
--- NOTE | 2020-04-28 16:04 | PDOC.PALPN ---
Palliative Progress Note - Subjective Bipap, weakness. Fatigued and has difficulity participating in conversation - Objective Vital Signs: Vital Signs - Most Recent Temp Pulse Resp BP Pulse Ox 97.8 F 108 H 18 129/78 100 04/28/20 11:53 04/27/20 12:00 04/27/20 12:00 04/27/20 12:00 04/28/20 08:00 - Physical Exam Constitutional: ill appearing, mild distress HEENT: EOMI, moist MMs, sclera anicteric Respiratory: diminished lung sound, labored respirations Cardiovascular: RRR Gastrointestinal: soft, non-tender Genitourinary: medley catheter Musculoskeletal: no cyanosis, no clubbing Neurology: moves all 4 limbs (weakness) Skin: cap refill <2 seconds, no lesions, no rash Psychiatric: A&O x 3 - Plan Plan: Patient aware of need to seek further evaluation for neuromuscular/neurological disorder. Awaiting transition to accepting facility. Patient recently requested consideration for a [place] facility. Dave Rutherford RnFacilities Maintenance Assistant communicated with Dr Garvey and Dr Calderón. Patient previously confirmed he did not desire a trach or Peg. Confirmed again today. Continue with emotional support and assistance with communication with family due to restricted visitation. Spiritual care also involved. [25] minutes spent on this encounter with >50% of the time in counseling and coordination of care. - ROS Constitutional: weakness ENT: dry mouth Respiratory: shortness of breath Cardiology: other (denies chest pain/palpitations) Neurological: weakness
--- NOTE | 2020-04-28 16:17 | PDOC.HOSPP ---
- Subjective Encounter Date: 04/28/20 Encounter Time: 08:30 Subjective: The patient was seen. He was moved to [facility] overnight due to some lethargy. Patient's was upset that she wasn't informed of this. He denies chest pain Patient wants to go home. I tried calling Dr. lee office, they would not be able to do an EMG until May 14. Patient agreeable to being transferred. [facility] does not offer this procedure. [facility] in [place] has this, but currently no beds Patient's states she would like to try a hospital in [place]. If no luck, then [facility] would be second choice and then [facility] last resort. [facility] did appear to offer inpatient EMG when I called - Objective Vital Signs & Weight: Vital Signs (12 hours) Temp Pulse Ox 04/28/20 11:53 97.8 F 04/28/20 08:00 100 04/28/20 07:20 97.7 F Weight Admit Weight 151 lb 3.794 oz Weight 158 lb Most Recent Monitor Data Heart Rate from ECG 102 NIBP 118/72 NIBP BP-Mean 87 Respiration from ECG 26 SpO2 100 I&O: 04/27/20 04/28/20 04/29/20 06:59 06:59 06:59 Intake Total 940 Output Total 4450 3450 Balance -4450 -2510 Result Diagrams: 04/28/20 04:23 04/28/20 04:23 Additional Labs: Accuchecks 04/28/20 04/28/20 04/27/20 11:03 06:02 21:30 POC Glucose 151 H 131 H 142 H 04/27/20 04/27/20 16:46 12:12 POC Glucose 145 H 139 H Hospitalist ROS - Review of Systems Constitutional: denies: fever, chills - Medication Medications: Active Medications Generic Name Dose Route Start Last Admin Trade Name Freq PRN Reason Stop Dose Admin Alprazolam 0.125 mg 04/24/20 15:34 04/27/20 01:11 Xanax PO 0.125 mg BIDPRN PRN Administration Anxiety Atorvastatin Calcium 40 mg 04/16/20 21:00 04/27/20 19:44 Lipitor PO 40 mg HS JUAN Administration Enoxaparin Sodium 40 mg 04/22/20 09:00 04/28/20 11:03 Lovenox SC 40 mg 0900 JUAN Administration Famotidine 20 mg 04/21/20 21:00 04/28/20 11:03 Pepcid PO 20 mg BID JUAN Administration Insulin Human Lispro 0 units 04/16/20 20:03 04/20/20 23:04 Humalog SC 2 unit .MILD SLIDING SCALE PRN Administration Mild Correctional Scale Prednisone 10 mg 04/22/20 09:00 04/28/20 11:03 Prednisone PO 10 mg DAILY JUAN Administration Sodium Chloride 10 ml 04/18/20 09:00 04/28/20 11:03 Flush - Normal Saline IVF 10 ml Q12HR JUAN Administration - Exam General Appearance: NAD, awake alert Eye: PERRL, anicteric sclera ENT: normocephalic atraumatic, no oropharyngeal lesions Neck: no JVD Heart: RRR, no murmur, no gallops, no rubs, murmur present Respiratory: CTAB, no wheezes, no rales, no ronchi Gastrointestinal: soft, non-tender, non-distended, normal bowel sounds Extremities: no cyanosis, no clubbing, no edema Skin: normal turgor, no lesions, no rashes Neurological: cranial nerve grossly intact, normal sensation to touch, no weakness, no new deficit Hosp A/P - Plan Echo - mild mitral regurg, mild tricuspid regurg, normal EF at 60-65% Chest Xray: bilateral alveolar opacity This is a 69 year old male with past medical history of diabetes, who presented to the ER with acute onset respiratory failure ECHO: EF 60-65%, mild MR, mild Tr Chest X ray: normal CTA chest: no PE CTA head/neck: no stenosis CT brain: no hemorrhage This is a 69 year old male with unknown past medical history except diabetes who was brought in after he was found slumped over at work. He was found to be hypercapneic and hypotensive and required intubation Acute hypoxic/hypercapneic failure - possibly septic shock from pneumonia vs neuromuscular disease (like ALS?) - patient was found slumped at work. Found to have pH 7.1, PCO2 130. He was hypotensive as well. He is s/p intubation and extubation - blood cultures negative, urine culture normal. He has finished course of IV zosyn 04/17 to 04/22. He is off pressors and has been weaned to oral steroids. Syphilis and PITO negative - neurologic workup for spinal pathology including MRI unable to be done since patient can't lay flat. Repeat attempt with CT cervical spine unable to be done - chest X ray 04/27 shows bilateral alveolar opacities possible pleural effusion. - continue IV diamox at lower dose 250 Metabolic alkalosis - - chronic from hypercapnea. Stopped IV fluids -bicarb has improved to 41 with diamox Elevated troponin - troponin elevated at 0.040, with CKMB 29. Troponins downtrended -ECHO unremarkable - continue aspirin and statin Acute encephalopathy - resolved Type II diabetes - fingersticks achs - insulin sliding scale Weight loss - CT chest shows no evidence of cancer Macrocytic Anemia - Hb 10. Check B12/folate/TSH
[2020-04-28] MEDS: Atorvastatin Calcium 40 MG TAB PO SCH (19:59)
[2020-04-28] MEDS: ALPRAZolam 0.25 MG TAB PO PRN (23:14)
[2020-04-29 06:23] LABS: Hemoglobin 10.5 g/dL (14.0-18.0); Mean Corpuscular HGB CONC 29.8 g/dL (32.0-36.0); Mean Corpuscular Hemoglobin 29.6 pg (27.0-31.0); Mean Corpuscular Volume 99.5 fL (78.0-98.0); Mean Platelet Volume 9.2 fL (7.4-10.4); Platelet Count 182 thou/uL (130-400); RBC Distribution Width 12.1 % (11.5-14.5); Red Blood Cell (RBC) Count 3.54 mill/uL (4.70-6.10); White Blood Cell (WBC) Count 6.1 thou/uL (4.8-10.8)
[2020-04-29 06:24] LABS: Band 1 % (5-11); Lymphocytes 27 % (21-51); MDiff Complete? YES; Monocytes 13 % (0-10); Neutrophil 59 % (42-75)
[2020-04-29 06:49] LABS: ALT (SGPT) 53 U/L (8-55); AST (SGOT) 17 U/L (5-34); Albumin 3.1 g/dL (3.4-4.8); Alkaline Phosphatase 62 U/L (40-110); BUN (Urea Nitrogen) 10 mg/dL (8.4-25.7); Bilirubin, Total 0.5 mg/dL (0.2-1.2); Calc. Creatinine Clearance 133 mL/min (70-130); Calcium 8.8 mg/dL (7.8-10.44); Estimated GFR-MDRD Greater than 90; Globulin 2.4 g/dL (2.4-3.5); Glucose 97 mg/dL (80-115); Protein, Total 5.5 g/dL (5.8-8.1)
[2020-04-29 06:57] LABS: Anion Gap 11 mmol/L (10-20); Chloride 95 mmol/L (98-107); Sodium 145 mmol/L (136-145)
[2020-04-29 07:00] LABS: Carbon Dioxide 43 mmol/L (23-31)
[2020-04-29] MEDS ORDERED: Sterile Water 10 ML VIAL IVP PRN (09:01)
[2020-04-29] MEDS: Enoxaparin Sodium 40 MG/0.4 ML SYRINGE SC SCH (09:31)
[2020-04-29] MEDS: Famotidine 20 MG TAB PO SCH ×2 (09:31→20:13)
[2020-04-29] MEDS: predniSONE 20 MG TAB PO SCH (09:31)
[2020-04-29] MEDS: acetaZOLAMIDE Sodium 500 mg Vial IVP SCH (09:31)
--- NOTE | 2020-04-29 18:27 | PDOC.HOSPP ---
- Subjective Encounter Date: 04/29/20 Encounter Time: 09:00 Subjective: The patient states he is doing well, he apparently did not tolerate the BIPAP and pulled it off frequently last night with the nursing staff. The patient states he is frustrated that nobody has tried to walk him. He states when PT walked him yesterday they didn't know how to put his brace on properly and he wants to get out of bed i had a long discussion with the . She initially was very adamant about not sending him to [place] or [place]. However after looking up her health insurance plan online, none of the major [facility] are in her network. She is agreeable to trying [facility] in [place] - Objective Vital Signs & Weight: Vital Signs (12 hours) Temp Pulse Ox 04/29/20 15:23 99.2 F 04/29/20 11:39 99.0 F 04/29/20 08:00 100 04/29/20 07:58 100 04/29/20 07:41 98.4 F Weight Admit Weight 151 lb 3.794 oz Weight 155 lb 8 oz Most Recent Monitor Data Heart Rate from ECG 116 NIBP 120/72 NIBP BP-Mean 88 Respiration from ECG 28 SpO2 98 I&O: 04/28/20 04/29/20 04/30/20 06:59 06:59 06:59 Intake Total 940 750 Output Total 3450 2650 Balance -2510 -1900 Result Diagrams: 04/29/20 05:43 04/29/20 05:43 Additional Labs: Accuchecks 04/29/20 04/29/20 04/28/20 17:03 05:48 20:03 POC Glucose 172 H 99 155 H Hospitalist ROS - Medication Medications: Active Medications Generic Name Dose Route Start Last Admin Trade Name Freq PRN Reason Stop Dose Admin Acetazolamide Sodium 250 mg 04/29/20 09:00 04/29/20 09:31 Diamox IVP 250 mg DAILY JUAN Administration Alprazolam 0.125 mg 04/24/20 15:34 04/28/20 23:14 Xanax PO 0.125 mg BIDPRN PRN Administration Anxiety Atorvastatin Calcium 40 mg 04/16/20 21:00 04/28/20 19:59 Lipitor PO 40 mg HS JUAN Administration Enoxaparin Sodium 40 mg 04/22/20 09:00 04/29/20 09:31 Lovenox SC 40 mg 0900 JUAN Administration Famotidine 20 mg 04/21/20 21:00 04/29/20 09:31 Pepcid PO 20 mg BID JUAN Administration Insulin Human Lispro 0 units 04/16/20 20:03 04/20/20 23:04 Humalog SC 2 unit .MILD SLIDING SCALE PRN Administration Mild Correctional Scale Prednisone 10 mg 04/22/20 09:00 04/29/20 09:31 Prednisone PO 10 mg DAILY JUAN Administration Sodium Chloride 10 ml 04/18/20 09:00 04/29/20 09:32 Flush - Normal Saline IVF 10 ml Q12HR JUAN Administration - Exam General Appearance: NAD, awake alert Eye: PERRL, anicteric sclera ENT: normocephalic atraumatic, no oropharyngeal lesions Neck: no JVD Heart: RRR, no murmur, no gallops, no rubs Respiratory: CTAB, no wheezes, no rales, no ronchi Gastrointestinal: soft, non-tender, non-distended, normal bowel sounds Extremities: no cyanosis, no clubbing, no edema Skin: normal turgor, no lesions, no rashes Neurological - other findings: diminished reflexes Musculoskeletal: normal tone, normal strength Musculoskeletal - other findings: 4/5 strength lowe extremities, 5/5 strength upper extremities Psychiatric: normal affect, normal behavior, A&O x 3 Hosp A/P - Plan Echo - mild mitral regurg, mild tricuspid regurg, normal EF at 60-65% Chest Xray: bilateral alveolar opacity This is a 69 year old male with past medical history of diabetes, who presented to the ER with acute onset respiratory failure ECHO: EF 60-65%, mild MR, mild Tr Chest X ray: normal CTA chest: no PE CTA head/neck: no stenosis CT brain: no hemorrhage This is a 69 year old male with unknown past medical history except diabetes who was brought in after he was found slumped over at work. He was found to be hypercapneic and hypotensive and required intubation Acute hypoxic/hypercapneic failure - possibly septic shock from pneumonia vs neuromuscular disease (like ALS?) - patient was found slumped at work. Found to have pH 7.1, PCO2 130. He was hypotensive as well. He is s/p intubation and extubation - blood cultures negative, urine culture normal. He has finished course of IV zosyn 04/17 to 04/22. He is off pressors and has been weaned to oral steroids. Syphilis and PITO negative - neurologic workup for spinal pathology including MRI unable to be done since patient can't lay flat. Repeat attempt with CT spine unsuccessful as well - chest X ray 04/27 shows bilateral alveolar opacities possible pleural effusion. - continue IV diamox - patient is pending transfer to [facility] in [place]. Currently on the waitlist. Needs inpatient and diaphragmatic EMG for further workup Metabolic alkalosis - - chronic from hypercapnea. Stopped IV fluids -bicarb has improved to 41 with diamox Elevated troponin - troponin elevated at 0.040, with CKMB 29. Troponins downtrended -ECHO unremarkable - continue aspirin and statin Acute encephalopathy - resolved Type II diabetes - fingersticks achs - insulin sliding scale Weight loss - CT chest shows no evidence of cancer Macrocytic Anemia - Hb 10. Check B12/folate/TSH
[2020-04-29] MEDS ORDERED: Folic Acid 1 MG TAB PO SCH (19:15)
[2020-04-29] MEDS: Atorvastatin Calcium 40 MG TAB PO SCH (20:13)
--- NOTE | 2020-04-30 06:03 | PRG ---
DATE OF SERVICE: 04/29/2020 SUBJECTIVE: There really has not been much change overnight. Apparently, he gets confused at night, tries to take his BiPAP off. Wore it most of last night from what the nurses tell me. He is pleasant, cooperative during the day. OBJECTIVE: VITAL SIGNS: He is afebrile. Heart rate is 114, blood pressure 120/72, respiratory rates in the 20s. LUNGS: Clear. HEART: Regular rhythm. ABDOMEN: Soft. IMPRESSION AND PLAN: [id number] hypoventilation, felt to be most likely secondary to neuromuscular disease. Workup cannot be completed here. He is truly a candidate for an elective tracheostomy at some point, but he does not want this. He is stable for transfer, but so far, Dr. Garvey has been unable to secure any transfer to any other facility for completion of neurological workup. Job ID: [id number]
[2020-04-30 06:11] LABS: BUN (Urea Nitrogen) 15 mg/dL (8.4-25.7); Calc. Creatinine Clearance 119 mL/min (70-130); Estimated GFR-MDRD Greater than 90; Glucose 110 mg/dL (80-115)
[2020-04-30 06:18] LABS: Hemoglobin 10.6 g/dL (14.0-18.0); Mean Corpuscular HGB CONC 30.7 g/dL (32.0-36.0); Mean Corpuscular Hemoglobin 30.2 pg (27.0-31.0); Mean Corpuscular Volume 98.4 fL (78.0-98.0); Mean Platelet Volume 10.2 fL (7.4-10.4); Platelet Count 177 thou/uL (130-400); RBC Distribution Width 12.3 % (11.5-14.5); White Blood Cell (WBC) Count 8.3 thou/uL (4.8-10.8)
[2020-04-30 06:19] LABS: Band 1 % (5-11); Eosinophils 1 % (0-10); Lymphocytes 16 % (21-51); MDiff Complete? YES; Monocytes 10 % (0-10); Neutrophil 72 % (42-75)
[2020-04-30 06:20] LABS: Anion Gap 15 mmol/L (10-20); Carbon Dioxide 36 mmol/L (23-31); Chloride 96 mmol/L (98-107); Sodium 143 mmol/L (136-145)
--- NOTE | 2020-04-30 07:57 | RAD ---
XR Chest 1 View Portable History: Pleural effusion follow-up Comparison: Radiograph April 27, 2020 Findings: Right IJ central venous catheter tip projects over the right atrium. Moderate effusions. Barbara ngs are hypoinflated with compressive atelectasis. Heart size mildly enlarged. No acute osseous abnormality. No displaced rib fracture. Impression: Similar appearance of the chest.
[2020-04-30] MEDS: Enoxaparin Sodium 40 MG/0.4 ML SYRINGE SC SCH (10:13)
[2020-04-30] MEDS: acetaZOLAMIDE Sodium 500 mg Vial IVP SCH (10:13)
[2020-04-30] MEDS: Famotidine 20 MG TAB PO SCH ×2 (10:22→19:53)
[2020-04-30] MEDS: Folic Acid 1 MG TAB PO SCH (10:22)
[2020-04-30] MEDS: predniSONE 20 MG TAB PO SCH (10:22)
--- NOTE | 2020-04-30 15:05 | PDOC.HOSPP ---
- Subjective Encounter Date: 04/30/20 Encounter Time: 10:00 Subjective: The patient has no complaints. He ambulated with physical therapy and was very weak with standing, noted to be leaning to the left side. [facility] in [place] does not offer inpatient EMG. Still on waitlist for [facility]. Patient's insurance does not cover [facility] [place] - Objective Vital Signs & Weight: Vital Signs (12 hours) Temp Pulse Pulse BP BP Pulse Ox Pulse Ox 04/30/20 11:04 90 92 122/74 108/80 100 04/30/20 07:11 98.4 F 04/30/20 07:00 99 04/30/20 04:55 97 F L Pulse Ox 04/30/20 11:04 100 04/30/20 07:11 04/30/20 07:00 04/30/20 04:55 Weight Admit Weight 151 lb 3.794 oz Weight 149 lb 12.8 oz Most Recent Monitor Data Heart Rate from ECG 111 NIBP 127/77 NIBP BP-Mean 93 Respiration from ECG 20 SpO2 100 I&O: 04/29/20 04/30/20 05/01/20 06:59 06:59 06:59 Intake Total 750 930 Output Total 2650 1705 Balance -1900 -2445 Result Diagrams: 04/30/20 04:50 04/30/20 04:50 Additional Labs: Accuchecks 04/30/20 04/30/20 04/30/20 10:45 05:06 00:05 POC Glucose 105 108 108 04/29/20 17:03 POC Glucose 172 H Hospitalist ROS - Review of Systems Constitutional: denies: fever, chills - Medication Medications: Active Medications Generic Name Dose Route Start Last Admin Trade Name Freq PRN Reason Stop Dose Admin Acetazolamide Sodium 250 mg 04/29/20 09:00 04/30/20 10:13 Diamox IVP 250 mg DAILY JUAN Administration Alprazolam 0.125 mg 04/24/20 15:34 04/28/20 23:14 Xanax PO 0.125 mg BIDPRN PRN Administration Anxiety Atorvastatin Calcium 40 mg 04/16/20 21:00 04/29/20 20:13 Lipitor PO 40 mg HS JUAN Administration Enoxaparin Sodium 40 mg 04/22/20 09:00 04/30/20 10:13 Lovenox SC 40 mg 0900 JUAN Administration Famotidine 20 mg 04/21/20 21:00 04/30/20 10:22 Pepcid PO 20 mg BID JUAN Administration Folic Acid 1 mg 04/30/20 09:00 04/30/20 10:22 Folvite PO 1 mg DAILY JUAN Administration Insulin Human Lispro 0 units 04/16/20 20:03 04/20/20 23:04 Humalog SC 2 unit .MILD SLIDING SCALE PRN Administration Mild Correctional Scale Prednisone 10 mg 04/22/20 09:00 04/30/20 10:22 Prednisone PO 10 mg DAILY JUAN Administration Sodium Chloride 10 ml 04/18/20 09:00 04/30/20 10:22 Flush - Normal Saline IVF 10 ml Q12HR JUAN Administration Sterile Water 10 ml 04/29/20 09:01 04/30/20 10:14 Water For Injection IVP 10 ml PRN PRN Administration TO RECONSTITUTE ACETAZOLAMIDE - Exam General Appearance: NAD, awake alert Eye: PERRL, anicteric sclera ENT: normocephalic atraumatic, no oropharyngeal lesions Neck: no JVD Heart: RRR, no murmur, no gallops, no rubs Respiratory: CTAB, no wheezes, no rales, no ronchi Gastrointestinal: soft, non-tender, non-distended, normal bowel sounds Extremities: no cyanosis, no clubbing, no edema Extremities - other findings: 5/5 strength in upper extremities. Upper ext decresased ROM Skin: normal turgor, no lesions, no rashes Neurological - other findings: has weakness standing, leans to left side. Diminished reflexes Psychiatric: normal affect, normal behavior, A&O x 3 Hosp A/P - Plan Echo - mild mitral regurg, mild tricuspid regurg, normal EF at 60-65% Chest Xray: bilateral alveolar opacity This is a 69 year old male with past medical history of diabetes, who presented to the ER with acute onset respiratory failure ECHO: EF 60-65%, mild MR, mild Tr Chest X ray: normal CTA chest: no PE CTA head/neck: no stenosis CT brain: no hemorrhage This is a 69 year old male with unknown past medical history except diabetes who was brought in after he was found slumped over at work. He was found to be hypercapneic and hypotensive and required intubation Acute hypoxic/hypercapneic failure - possibly septic shock from pneumonia vs neuromuscular disease (like ALS?) - patient was found slumped at work. Found to have pH 7.1, PCO2 130. He was hypotensive as well. He is s/p intubation and extubation - blood cultures negative, urine culture normal. He has finished course of IV zosyn 04/17 to 04/22. He is off pressors and has been weaned to oral steroids. Syphilis and PITO negative - neurologic workup for spinal pathology including MRI unable to be done since patient can't lay flat. Repeat attempt with CT spine unsuccessful as well - chest X ray 04/27 shows bilateral alveolar opacities possible pleural effusion. - continue IV diamox - patient is pending transfer to [facility] in [place]. Currently on the waitlist. Needs inpatient and diaphragmatic EMG for further workup. [facility] offer this in [place] but this is not in network with her insurance, neither are [facility] [place] - continue with PT Metabolic alkalosis - - chronic from hypercapnea. Stopped IV fluids -bicarb has improved to 41 with diamox Elevated troponin - troponin elevated at 0.040, with CKMB 29. Troponins downtrended -ECHO unremarkable - continue aspirin and statin Acute encephalopathy - resolved Type II diabetes - fingersticks achs - insulin sliding scale Weight loss - CT chest shows no evidence of cancer Folate deficiency Anemia - Hb 10. Folate level low, start folic acid supplementation
--- NOTE | 2020-04-30 18:44 | PRG ---
DATE OF SERVICE: 04/30/2020 SUBJECTIVE: Mr. Davison stood with physical therapy. He will tire very quickly, he does better with his brace on his foot. He has a brace attached to his shoe. He is still quite weak. He is still sleeping with noninvasive ventilation at night. OBJECTIVE: LUNGS: Clear. HEART: Regular rhythm. ABDOMEN: Soft. LABORATORY DATA: Bicarb is down to 36 now. Creatinine is 0.5. We might consider discontinuing his Diamox in the next day or 2. He has tentatively been accepted by [facility] in [place] for further neurological workup of his diaphragm weakness. I strongly suspect he has a neuromuscular disorder leading to diaphragm weakness and hypoventilation chronically or subacutely. Job ID: [id number]
[2020-04-30] MEDS: Atorvastatin Calcium 40 MG TAB PO SCH (19:53)
[2020-05-01 04:31] LABS: BUN (Urea Nitrogen) 16 mg/dL (8.4-25.7); Calc. Creatinine Clearance 128 mL/min (70-130); Estimated GFR-MDRD Greater than 90; Glucose 109 mg/dL (80-115)
[2020-05-01 04:40] LABS: Anion Gap 14 mmol/L (10-20); Carbon Dioxide 36 mmol/L (23-31); Chloride 99 mmol/L (98-107); Sodium 145 mmol/L (136-145)
[2020-05-01 04:47] LABS: Band 1 % (5-11); Hemoglobin 10.7 g/dL (14.0-18.0); Lymphocytes 18 % (21-51); MDiff Complete? YES; Mean Corpuscular HGB CONC 31.6 g/dL (32.0-36.0); Mean Corpuscular Hemoglobin 30.9 pg (27.0-31.0); Mean Corpuscular Volume 97.9 fL (78.0-98.0); Mean Platelet Volume 9.5 fL (7.4-10.4); Monocytes 8 % (0-10); Neutrophil 73 % (42-75); Platelet Count 168 thou/uL (130-400); RBC Distribution Width 12.3 % (11.5-14.5); Red Blood Cell (RBC) Count 3.46 mill/uL (4.70-6.10); White Blood Cell (WBC) Count 9.2 thou/uL (4.8-10.8)
[2020-05-01] MEDS: acetaZOLAMIDE Sodium 500 mg Vial IVP SCH (09:14)
[2020-05-01] MEDS: Folic Acid 1 MG TAB PO SCH (09:17)
[2020-05-01] MEDS: predniSONE 20 MG TAB PO SCH (09:17)
[2020-05-01] MEDS: Famotidine 20 MG TAB PO SCH ×2 (09:18→21:33)
[2020-05-01] MEDS: Enoxaparin Sodium 40 MG/0.4 ML SYRINGE SC SCH (09:18)
[2020-05-01 11:45] VITALS: BMI 21.4
--- NOTE | 2020-05-01 16:10 | PDOC.HOSPP ---
- Subjective Encounter Date: 05/01/20 Encounter Time: 10:00 Subjective: Patient has no new complaints today. He denies worsening shortness of breath or chest pain. Patient states that he has not ambulated yet and he is only stood up. Still awaiting a bed at [facility] in [place]. Patient reports he had left foot drop for two years prior to this, never had back surgery or any leg surgeries. His prior occupation was working in an office - Objective Vital Signs & Weight: Vital Signs (12 hours) Temp Pulse Pulse BP BP Pulse Ox Pulse Ox 05/01/20 15:46 99.2 F 05/01/20 14:09 115 H 111 H 126/77 114/71 100 05/01/20 11:48 98.2 F 05/01/20 08:00 98 05/01/20 07:12 98.7 F Pulse Ox 05/01/20 15:46 05/01/20 14:09 96 05/01/20 11:48 05/01/20 08:00 05/01/20 07:12 Weight Admit Weight 151 lb 3.794 oz Weight 145 lb 2 oz Most Recent Monitor Data Heart Rate from ECG 113 NIBP 111/67 NIBP BP-Mean 81 Respiration from ECG 20 SpO2 100 I&O: 04/30/20 05/01/20 05/02/20 06:59 06:59 06:59 Intake Total 930 720 Output Total 5465 7005 Balance -2445 -5175 Result Diagrams: 05/01/20 04:00 05/01/20 04:00 Additional Labs: Accuchecks 05/01/20 05/01/20 04/30/20 10:40 06:02 20:46 POC Glucose 184 H 107 217 H 04/30/20 16:41 POC Glucose 170 H Hospitalist ROS - Review of Systems Constitutional: denies: fever, chills - Medication Medications: Active Medications Generic Name Dose Route Start Last Admin Trade Name Freq PRN Reason Stop Dose Admin Acetazolamide Sodium 250 mg 04/29/20 09:00 05/01/20 09:14 Diamox IVP 250 mg DAILY JUAN Administration Alprazolam 0.125 mg 04/24/20 15:34 04/28/20 23:14 Xanax PO 0.125 mg BIDPRN PRN Administration Anxiety Atorvastatin Calcium 40 mg 04/16/20 21:00 04/30/20 19:53 Lipitor PO 40 mg HS JUAN Administration Enoxaparin Sodium 40 mg 04/22/20 09:00 05/01/20 09:18 Lovenox SC 40 mg 0900 JUAN Administration Famotidine 20 mg 04/21/20 21:00 05/01/20 09:18 Pepcid PO 20 mg BID JUAN Administration Folic Acid 1 mg 04/30/20 09:00 05/01/20 09:17 Folvite PO 1 mg DAILY JUAN Administration Insulin Human Lispro 0 units 04/16/20 20:03 04/20/20 23:04 Humalog SC 2 unit .MILD SLIDING SCALE PRN Administration Mild Correctional Scale Prednisone 10 mg 04/22/20 09:00 05/01/20 09:17 Prednisone PO 10 mg DAILY JUAN Administration Sodium Chloride 10 ml 04/18/20 09:00 05/01/20 09:18 Flush - Normal Saline IVF 10 ml Q12HR JUAN Administration Sterile Water 10 ml 04/29/20 09:01 04/30/20 10:14 Water For Injection IVP 10 ml PRN PRN Administration TO RECONSTITUTE ACETAZOLAMIDE - Exam General Appearance: NAD, awake alert Eye: PERRL, anicteric sclera ENT: normocephalic atraumatic, no oropharyngeal lesions Neck: no JVD Heart: RRR, no murmur, no gallops, no rubs Respiratory: CTAB, no wheezes, no rales, no ronchi Gastrointestinal: soft, non-tender, non-distended, normal bowel sounds Extremities: no cyanosis, no clubbing, no edema Skin: normal turgor, no lesions, no rashes Neurological - other findings: 1+ reflexe right, absent left patella, 2+ biceps/ brachioradialis. Musculoskeletal - other findings: 5/5 strength upper extremities, 4/5 lower extremities. Left foot drop Hosp A/P - Plan Echo - mild mitral regurg, mild tricuspid regurg, normal EF at 60-65% Chest Xray: bilateral alveolar opacity This is a 69 year old male with past medical history of diabetes, who presented to the ER with acute onset respiratory failure ECHO: EF 60-65%, mild MR, mild Tr Chest X ray: normal CTA chest: no PE CTA head/neck: no stenosis CT brain: no hemorrhage This is a 69 year old male with unknown past medical history except diabetes who was brought in after he was found slumped over at work. He was found to be hypercapneic and hypotensive and required intubation Acute hypoxic/hypercapneic failure - possibly septic shock from pneumonia vs neuromuscular disease (like ALS?) - patient was found slumped at work. Found to have pH 7.1, PCO2 130. He was hypotensive as well. He is s/p intubation and extubation - blood cultures negative, urine culture normal. He has finished course of IV zosyn 04/17 to 04/22. He is off pressors . Syphilis and PITO negative - neurologic workup for spinal pathology including MRI unable to be done since patient can't lay flat. Repeat attempt with CT spine unsuccessful as well - chest X ray 04/27 shows bilateral alveolar opacities possible pleural effusion. Repeat chest Xray 04/30 unchanged. - continue IV diamox, bicarb has reduced to 36. - still pending transfer to [facility] in [place], on the waitlist. Other large hospitals in [place] are not in network with patient's insurance Metabolic alkalosis - - chronic from hypercapnea. Stopped IV fluids -bicarb has improved to 37 with diamox Elevated troponin - troponin elevated at 0.040, with CKMB 29. Troponins downtrended -ECHO unremarkable - continue aspirin and statin Acute encephalopathy - resolved Type II diabetes - fingersticks achs - insulin sliding scale Weight loss - CT chest shows no evidence of cancer Folate deficiency Anemia - Hb 10. Folate level low, start folic acid supplementation
--- NOTE | 2020-05-01 16:50 | PRG ---
DATE OF SERVICE: 05/01/2020 SUBJECTIVE: Sudeep Davison remains stable. OBJECTIVE: VITAL SIGNS: Heart rate is 115, blood pressure , respiratory rates in the teens, oximetry is 96% to 100%. LUNGS: Unchanged. HEART: Unchanged. ABDOMEN: Unchanged. IMPRESSION: Subacute/chronic hypoventilation, most likely secondary to a neuromuscular process. Awaiting transfer to [facility] in [place] when a bed becomes available to complete the workup. He does have chronic back problems, but all of these issues we are dealing with now are new, relatively speaking. It is extremely unlikely that his cervical spine problem is leading to his extreme diaphragm weakness, has very low negative inspiratory force and his chronic hypoventilation. Job ID: [id number] MTDD
[2020-05-01] MEDS: Atorvastatin Calcium 40 MG TAB PO SCH (21:33)
[2020-05-02 04:38] LABS: Eosinophils 1 % (0-10); Hemoglobin 10.4 g/dL (14.0-18.0); Lymphocytes 20 % (21-51); MDiff Complete? YES; Mean Corpuscular HGB CONC 30.7 g/dL (32.0-36.0); Mean Corpuscular Hemoglobin 30.1 pg (27.0-31.0); Mean Corpuscular Volume 98.1 fL (78.0-98.0); Mean Platelet Volume 9.3 fL (7.4-10.4); Metamyelocyte 1 % (0-0); Monocytes 9 % (0-10); Neutrophil 69 % (42-75); Platelet Count 167 thou/uL (130-400); Platelet Morphology Comment Appears Adequate; RBC Distribution Width 12.6 % (11.5-14.5); Red Blood Cell (RBC) Count 3.44 mill/uL (4.70-6.10); White Blood Cell (WBC) Count 5.8 thou/uL (4.8-10.8)
[2020-05-02 04:42] LABS: BUN (Urea Nitrogen) 17 mg/dL (8.4-25.7); Calc. Creatinine Clearance 124 mL/min (70-130); Calcium 9.2 mg/dL (7.8-10.44); Estimated GFR-MDRD Greater than 90; Glucose 126 mg/dL (80-115)
[2020-05-02 04:53] LABS: Anion Gap 14 mmol/L (10-20); Carbon Dioxide 36 mmol/L (23-31); Chloride 98 mmol/L (98-107); Potassium 3.9 mmol/L (3.5-5.1); Sodium 144 mmol/L (136-145)
--- NOTE | 2020-05-02 07:35 | PRG ---
DATE OF SERVICE: 05/02/2020 SUBJECTIVE: Sudeep Davison is clinically unchanged. He wore BiPAP last night. OBJECTIVE: VITAL SIGNS: Blood pressure 114/72, heart rate is 105, and respiratory rate is 26. LUNGS: Clear. HEART: Regular rhythm. ABDOMEN: Soft. IMPRESSION: Neuromuscular weakness with diaphragm dysfunction because of this and chronic hypoventilation with acute decompensation leading to admission. His neurological workup cannot be completed here. It will need to be completed at another hospital. He will likely need long-term noninvasive nighttime ventilation and p.r.n. ventilation during the day. He is stable for transfer. Job ID: [id number]
[2020-05-02] MEDS: Famotidine 20 MG TAB PO SCH ×2 (10:09→21:54)
[2020-05-02] MEDS: predniSONE 20 MG TAB PO SCH (10:09)
[2020-05-02] MEDS: Folic Acid 1 MG TAB PO SCH (10:10)
[2020-05-02] MEDS: acetaZOLAMIDE Sodium 500 mg Vial IVP SCH (10:10)
[2020-05-02] MEDS: Enoxaparin Sodium 40 MG/0.4 ML SYRINGE SC SCH (10:12)
--- NOTE | 2020-05-02 13:46 | PDOC.HOSPP ---
- Subjective Encounter Date: 05/02/20 Encounter Time: 07:00 Subjective: The patient is still currently on the waitlist for a bed in [place]. He has no new complaints. No shortness of breath or chest pain. He states he walked a little bit farther yesterday with PT but is still weak. I have asked for records to be obtained regarding MRI spine - Objective Vital Signs & Weight: Vital Signs (12 hours) Temp Pulse Ox 05/02/20 11:43 98.2 F 05/02/20 08:00 98 05/02/20 07:35 98.9 F 05/02/20 03:52 98.1 F Weight Admit Weight 151 lb 3.794 oz Weight 144 lb 6.4 oz Most Recent Monitor Data Heart Rate from ECG 114 NIBP 114/74 NIBP BP-Mean 87 Respiration from ECG 22 SpO2 100 I&O: 05/01/20 05/02/20 05/03/20 06:59 06:59 06:59 Intake Total 720 720 Output Total 0772 3988 Balance -1855 1102 Result Diagrams: 05/02/20 04:07 05/02/20 03:30 Additional Labs: Accuchecks 05/02/20 05/02/20 05/01/20 10:57 05:33 20:30 POC Glucose 162 H 123 H 171 H 05/01/20 16:50 POC Glucose 162 H Hospitalist ROS - Review of Systems Constitutional: denies: fever, chills - Medication Medications: Active Medications Generic Name Dose Route Start Last Admin Trade Name Freq PRN Reason Stop Dose Admin Acetazolamide Sodium 250 mg 04/29/20 09:00 05/02/20 10:10 Diamox IVP 250 mg DAILY JUAN Administration Alprazolam 0.125 mg 04/24/20 15:34 04/28/20 23:14 Xanax PO 0.125 mg BIDPRN PRN Administration Anxiety Atorvastatin Calcium 40 mg 04/16/20 21:00 05/01/20 21:33 Lipitor PO Not Given HS JUAN Enoxaparin Sodium 40 mg 04/22/20 09:00 05/02/20 10:12 Lovenox SC 40 mg 0900 JUAN Administration Famotidine 20 mg 04/21/20 21:00 05/02/20 10:09 Pepcid PO 20 mg BID JUAN Administration Folic Acid 1 mg 04/30/20 09:00 05/02/20 10:10 Folvite PO 1 mg DAILY JUAN Administration Insulin Human Lispro 0 units 04/16/20 20:03 04/20/20 23:04 Humalog SC 2 unit .MILD SLIDING SCALE PRN Administration Mild Correctional Scale Prednisone 10 mg 04/22/20 09:00 05/02/20 10:09 Prednisone PO 10 mg DAILY JUAN Administration Sodium Chloride 10 ml 04/18/20 09:00 05/02/20 10:13 Flush - Normal Saline IVF 10 ml Q12HR JUAN Administration Sterile Water 10 ml 04/29/20 09:01 04/30/20 10:14 Water For Injection IVP 10 ml PRN PRN Administration TO RECONSTITUTE ACETAZOLAMIDE - Exam General Appearance: NAD, awake alert Eye: PERRL, anicteric sclera ENT: normocephalic atraumatic, no oropharyngeal lesions Neck: no JVD Heart: RRR, no murmur, no gallops, no rubs Respiratory: CTAB, no wheezes, no rales, no ronchi Gastrointestinal: soft, non-tender, non-distended, normal bowel sounds Extremities: no cyanosis, no clubbing, no edema Skin: normal turgor, no lesions, no rashes Hosp A/P - Plan Echo - mild mitral regurg, mild tricuspid regurg, normal EF at 60-65% Chest Xray: bilateral alveolar opacity This is a 69 year old male with past medical history of diabetes, who presented to the ER with acute onset respiratory failure ECHO: EF 60-65%, mild MR, mild Tr Chest X ray: normal CTA chest: no PE CTA head/neck: no stenosis CT brain: no hemorrhage This is a 69 year old male with unknown past medical history except diabetes who was brought in after he was found slumped over at work. He was found to be hypercapneic and hypotensive and required intubation Acute hypoxic/hypercapneic failure - likely from neuromuscular disease (like ALS?) Septic shock - resolved - patient was found slumped at work. Found to have pH 7.1, PCO2 130. He was hypotensive as well and required pressors. He is s/p intubation and extubation - blood cultures negative, urine culture normal. He is s/p IV zosyn 04/17 to . He is off pressors . Possibly had a component of pneumonia. Syphilis and PITO negative. - anticipate neuromuscular cause of weakness given progressive weakness in past few months and diaphragmatic weakness. Myasthena gravis antibodies are negative. - neurologic workup for spinal pathology including MRI unable to be done since patient can't lay flat. Repeat attempt with CT spine unsuccessful as well patient refuses to do additional attempts - obtained records from [facility] regarding MRI spine results. Transfer to [facility] in [place] for diaphragmatic EMG and inpatient EMG for ALS workup pending, currently on the waitlist - chest X ray 04/27 showed bilateral alveolar opacities, started on IV diamox given metabolic alkalosis. Bicarb has improved from > 40 to 36. Repeat X ray stable, so will discontinue Metabolic alkalosis - - chronic from hypercapnea. Stopped IV fluids -bicarb has improved to 36 with diamox, will discnotinue Elevated troponin - from demand ischemia - troponin elevated at 0.040, with CKMB 29. Troponins downtrended -ECHO unremarkable - continue aspirin and statin Folate deficiency Anemia continue folic acid supplementation Type II diabetes - fingersticks achs - insulin sliding scale Left sided foot drop - patient is getting PT, and wears a brace. This is chronic for the past two years Weight loss -possibly neuromuscular etiology - CT chest shows no evidence of cancer. Dispo: pending transfer to [facility]
[2020-05-02] MEDS: Atorvastatin Calcium 40 MG TAB PO SCH (21:55)
[2020-05-03 06:28] LABS: Hemoglobin 11.7 g/dL (14.0-18.0); Hypochromia SLIGHT = 6-15 cells (100X) (0-5/hpf); Lymphocytes 17 % (21-51); MDiff Complete? YES; Mean Corpuscular HGB CONC 29.8 g/dL (32.0-36.0); Mean Corpuscular Hemoglobin 29.6 pg (27.0-31.0); Mean Corpuscular Volume 99.4 fL (78.0-98.0); Monocytes 13 % (0-10); Neutrophil 70 % (42-75); Platelet Count 170 thou/uL (130-400); Platelet Morphology Comment Appears Adequate; RBC Distribution Width 12.4 % (11.5-14.5); Red Blood Cell (RBC) Count 3.96 mill/uL (4.70-6.10); White Blood Cell (WBC) Count 7.7 thou/uL (4.8-10.8)
[2020-05-03 06:38] LABS: BUN (Urea Nitrogen) 17 mg/dL (8.4-25.7); Calc. Creatinine Clearance 111 mL/min (70-130); Calcium 9.7 mg/dL (7.8-10.44); Estimated GFR-MDRD Greater than 90; Glucose 120 mg/dL (80-115)
[2020-05-03 06:47] LABS: Anion Gap 11 mmol/L (10-20); Carbon Dioxide 39 mmol/L (23-31); Chloride 98 mmol/L (98-107); Potassium 4.3 mmol/L (3.5-5.1); Sodium 144 mmol/L (136-145)
--- NOTE | 2020-05-03 08:43 | CT ---
PRELIMINARY REPORT/DIRECT RADIOLOGY/EMERGENCY AFTER HOURS PROCEDURE: EXAM: CT Head Without Intravenous Contrast. CLINICAL HISTORY: Unwitnessed fall, pt on lovenox TECHNIQUE: Axial computed tomography images of the head/brain without intravenous contrast. COMPARISON: CT\SR - CTA ANGIO HEAD W WO CON - 04/16/2020 06:27 PM CDT FINDINGS: BRAIN: No acute intraparenchymal hemorrhage. No mass lesion. No CT evidence for acute territorial inf arct. No midline shift or extra-axial collection. VENTRICLES: No hydrocephalus. ORBITS: The orbits are unremarkable. SINUSES AND MASTOIDS: The paranasal sinuses and mastoid air cells are clear. SOFT TISSUES: Soft tissue swelling is seen in the posterior left neck. No radiopaque foreign body is seen. BONES: No acute skull fracture. IMPRESSION: No acute intracranial abnormality. ELECTRONICALLY SIGNED BY: Scotty Avery MD May 03, 2020 3:34:23 AM CDT FINAL REPORT CT BRAIN: I agree with the preliminary report provided. No acute intracranial abnormality. There is soft tiss ue contusion involving the posterior left occipital scalp. POS:
[2020-05-03] MEDS: Folic Acid 1 MG TAB PO SCH (09:44)
[2020-05-03] MEDS: Famotidine 20 MG TAB PO SCH ×2 (09:44→20:36)
[2020-05-03] MEDS: predniSONE 20 MG TAB PO SCH (09:44)
[2020-05-03] MEDS: Enoxaparin Sodium 40 MG/0.4 ML SYRINGE SC SCH (09:45)
--- NOTE | 2020-05-03 12:43 | PRG ---
DATE OF SERVICE: 05/03/2020 SUBJECTIVE: The patient is about the same. He actually tried to get up out of bed last night, fell. He had a CT of the head which was negative. He is awaiting transfer over to [facility] for an ALS evaluation. OBJECTIVE: VITAL SIGNS: Temperature 97.4, pulse 106, respirations 16, O2 saturation 96%, blood pressure 102/65. HEENT: Unremarkable. NECK: No JVD. LUNGS: Clear. CARDIAC: S1, S2 regular. ABDOMEN: Soft. EXTREMITIES: No edema. ASSESSMENT: 1. Possible amyotrophic lateral sclerosis. 2. Diaphragmatic weakness. PLAN: 1. Continue nocturnal ventilation. 2. Await transfer to [facility]. 3. The patient is to continue low-dose prednisone. Job ID: [id number]
--- NOTE | 2020-05-03 13:14 | PDOC.HOSPP ---
- Subjective Encounter Date: 05/03/20 Subjective: No new complaints. - Objective Vital Signs & Weight: Vital Signs (12 hours) Temp Pulse Resp BP BP Pulse Ox 05/03/20 11:00 97.4 F L 106 H 16 102/65 96 05/03/20 08:00 96 05/03/20 07:33 97.5 F L 113 H 18 124/71 96 05/03/20 04:00 97.4 F L 104 H 20 144/84 H 100 05/03/20 02:15 98.6 F 99 18 126/75 95 Weight Admit Weight 151 lb 3.794 oz Weight 140 lb Most Recent Monitor Data Heart Rate from ECG 109 NIBP 115/72 NIBP BP-Mean 86 Respiration from ECG 37 SpO2 100 I&O: 05/02/20 05/03/20 05/04/20 06:59 06:59 06:59 Intake Total 720 660 Output Total 1824 2050 Balance -1103 -6547 Result Diagrams: 05/03/20 06:04 05/03/20 06:04 Additional Labs: Accuchecks 05/03/20 05/03/20 05/02/20 11:24 04:24 17:52 POC Glucose 177 H 109 179 H 05/02/20 16:04 POC Glucose 216 H Hospitalist ROS - Medication Medications: Active Medications Generic Name Dose Route Start Last Admin Trade Name Freq PRN Reason Stop Dose Admin Alprazolam 0.125 mg 04/24/20 15:34 04/28/20 23:14 Xanax PO 0.125 mg BIDPRN PRN Administration Anxiety Atorvastatin Calcium 40 mg 04/16/20 21:00 05/02/20 21:55 Lipitor PO 40 mg HS JUAN Administration Enoxaparin Sodium 40 mg 04/22/20 09:00 05/03/20 09:45 Lovenox SC 40 mg 0900 JUAN Administration Famotidine 20 mg 04/21/20 21:00 05/03/20 09:44 Pepcid PO 20 mg BID JUAN Administration Folic Acid 1 mg 04/30/20 09:00 05/03/20 09:44 Folvite PO 1 mg DAILY JUAN Administration Insulin Human Lispro 0 units 04/16/20 20:03 04/20/20 23:04 Humalog SC 2 unit .MILD SLIDING SCALE PRN Administration Mild Correctional Scale Prednisone 10 mg 04/22/20 09:00 05/03/20 09:44 Prednisone PO 10 mg DAILY JUAN Administration Sodium Chloride 10 ml 04/18/20 09:00 05/03/20 09:45 Flush - Normal Saline IVF 10 ml Q12HR JUAN Administration Sterile Water 10 ml 04/29/20 09:01 04/30/20 10:14 Water For Injection IVP 10 ml PRN PRN Administration TO RECONSTITUTE ACETAZOLAMIDE - Exam General Appearance: awake alert ENT: normocephalic atraumatic Heart: RRR Respiratory: normal chest expansion, no tachypnea Neurological: cranial nerve grossly intact Neurological - other findings: 3/5 B/L LE WEAKNESS Hosp A/P - Plan Acute hypoxic/hypercapneic failure Acute encephalopathy Metabolic alkalosis Elevated troponin Type II diabetes Weight loss Anemia Aspiration pneumonia. Acute on chronic respiratory failure with hypoxia and hypercarbia likely due to diaphragmatic dysfunction. Patient does have weakness of his upper and lower extremities. 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 EMG and NCS recommended as an inpatient per neurology and pulmonology. Currently pending transfer to [facility] in [place].
[2020-05-03] MEDS: HumaLOG 300 UNITS/3 ML VIAL SC PRN (17:29)
[2020-05-03] MEDS: Atorvastatin Calcium 40 MG TAB PO SCH (20:36)
[2020-05-03] MEDS: ALPRAZolam 0.25 MG TAB PO PRN (20:37)
[2020-05-04 06:04] LABS: Hemoglobin 11.3 g/dL (14.0-18.0); Mean Corpuscular HGB CONC 30.4 g/dL (32.0-36.0); Mean Corpuscular Hemoglobin 29.9 pg (27.0-31.0); Mean Corpuscular Volume 98.2 fL (78.0-98.0); Mean Platelet Volume 9.6 fL (7.4-10.4); Platelet Count 160 thou/uL (130-400); RBC Distribution Width 12.5 % (11.5-14.5); Red Blood Cell (RBC) Count 3.77 mill/uL (4.70-6.10); White Blood Cell (WBC) Count 7.4 thou/uL (4.8-10.8)
[2020-05-04 06:15] LABS: Eosinophils 2 % (0-10); Lymphocytes 11 % (21-51); MDiff Complete? YES; Monocytes 12 % (0-10); Neutrophil 75 % (42-75)
[2020-05-04 06:21] LABS: BUN (Urea Nitrogen) 20 mg/dL (8.4-25.7); Calc. Creatinine Clearance 112 mL/min (70-130); Calcium 9.2 mg/dL (7.8-10.44); Estimated GFR-MDRD Greater than 90; Glucose 163 mg/dL (80-115)
[2020-05-04 06:30] LABS: Anion Gap 13 mmol/L (10-20); Carbon Dioxide 39 mmol/L (23-31); Chloride 95 mmol/L (98-107); Sodium 143 mmol/L (136-145)
[2020-05-04 07:35] VITALS: BP 114/73; TEMP 98
[2020-05-04] MEDS: predniSONE 20 MG TAB PO SCH (07:49)
[2020-05-04] MEDS: Enoxaparin Sodium 40 MG/0.4 ML SYRINGE SC SCH (07:49)
[2020-05-04] MEDS: Famotidine 20 MG TAB PO SCH (07:49)
[2020-05-04] MEDS: Folic Acid 1 MG TAB PO SCH (07:50)
--- NOTE | 2020-05-05 07:00 | DIS ---
DATE OF ADMISSION: 04/16/2020 DATE OF DISCHARGE: 05/04/2020 DISCHARGE DIAGNOSES: 1. Acute hypoxic and hypercarbic respiratory failure. 2. Diaphragmatic and generalized weakness. 3. 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 4. Diabetes mellitus type 2. 5. Aspiration pneumonia. TRANSFER MEDICATIONS: 1. Alprazolam 0.125 mg orally twice daily as needed for agitation. 2. Aspirin 81 mg orally daily. 3. Lovenox 40 mg subcu daily for DVT prophylaxis. 4. Pepcid 20 mg orally twice daily. 5. Flovent 50 mcg inhaled daily. 6. Folic acid 1 mg orally daily. 7. Lisinopril 40 mg orally daily. 8. Metoprolol succinate 50 mg orally daily. 9. Prednisone 10 mg orally daily. 10. Crestor 10 mg orally daily. HISTORY OF PRESENT ILLNESS AND HOSPITAL COURSE: The patient is a 69-year-old male with past medical history of diabetes mellitus, who presented to the hospital on April 16. The patient has been experiencing worsening generalized weakness more to the lower extremities over the weeks preceding admission. He was brought to the ER in an altered mental state and was found to be in acute hypercarbic respiratory failure with respiratory acidosis. He was intubated and admitted into the intensive care unit. The patient was intubated for 5 days and successfully extubated on the 21 of April. During the time of his intubation, his imaging studies revealed right lower lobe infiltrates, which were thought to be due to aspiration event. The patient received an antibiotic course. After extubation, the patient stated that he has been experiencing weakness prior to admission and currently unable to move his lower extremities. His negative inspiratory force was noted to be profoundly decreased. Diaphragmatic weakness was diagnosed and the patient was managed with intermittent positive-pressure ventilation, especially during night. He was unable to lay flat due to worsening respiratory status and thus we were unable to perform imaging studies of his spine to further examine the cause of his weakness. Serological studies including ANCA screen, acetylcholine receptor antibodies, and syphilis antibodies, in addition to COVID-19 were all unremarkable. The patient was evaluated by Neurology Service and this suggested that the patient's condition could be related to a motor neuron disease or ALS. Transferred to a tertiary care center was recommended for EMG and NCS and diaphragmatic EMG. Prior to discharge, the patient has been stable on the medical floor requiring 2 L of oxygen during the day and BiPAP with PEEP of 5 during the night. Job ID: [id number]
--- NOTE | 2020-05-06 03:16 | PQF ---
Dear : Nirmal Moore Date : 05/06/2020 Please exercise your independent, professional judgment in responding to the clarification form. Clinical indicators are provided on the bottom of this form for your review Can you please further clarify the etiology of acute respiratory failure? Please check appropriate box(es): [ ] Septic shock [ >] ALS [ ] Motor neuron disease [ ] COPD Exacerbation [ ] Other diagnosis [ ] Unable to determine Physician Signature: Date/Time: For continuity of documentation, please document condition throughout progress notes and discharge summary. Thank You. To be completed by CDI/Coding staff for physician review: Present Clinical Indicators - Signs / Symptoms / Labs Results and Location in Medical Record [ x ] Acute hypoxic/hypercapnic failure- possibly septic shock unknown source vs diagnosed COPD exacerbation VS neuromuscular disease vs autoimmune disease Hospitalist PN pg.5 [ x ] H e was found to be hypercapnic and hypotensive H and P pg.4 [ x ] Possible amyotrophic lateral sclerosis PN 05/03 pg.1 [ x ] Acute on chronic respiratory failure likely due to diaphragmatic dysfunction Hospitalist PN pg.5 [ x ] subacute/chronic hypoventilation most likely 2/2 neuromuscular process PN 05/01 pg.1 [ x ] Acute respi failure possibly septic shock from pneumonia vs neuromuscular disease (like ALS) Hospitalist PN pg.5 Present Risk Factors Results and Location in Medical Record [ x ] smoker H and P pg.2 [ x ] Acute Encephalopathy H and P pg.4 [ x ] DM H and P pg.4 [ x ] 69 years old H and P pg.1 [ x ] Diaphragmatic weakness DS pg.1 [ x ] Aspiration Pneumonia DS pg.1 [ x ] COPD exacerbation Hospitalist PN pg.5 Present Treatments Results and Location in Medical Record [ x ] Pulmonary Consult Dr. Steel 04/17 [ x ] Intubation ED Provider note [ x ] Chest X ray [ x ] Neuro check every [address] Calderón [ x ] Neuro Consult Dr. Calderón [ x ] CT [place] [facility] angio with contrast 04/16/20 [ x ] CT Brain CT Brain folder [ x ] CPAP PN 04/20/20 [ x ] IV Fluids MAR [ x ] Vasopressor MAR [ x ] IV Antibiotics MAR CDS/Benefits Consultant Signature: BhavinDonald [place] Phone #: ext [phone] Date: 05/06/2020 MTDD
== END 2020-05-04 16:03 | disposition short-term general hospital (02) | DRG 208 ==
LOC: ERS 15:35 → EDBD 15:35 → CCU 19:26 → IMCU/EMU 04-21 23:03 → T4-A 04-23 18:34 → IMCU/EMU 04-27 12:43 → T4-B 05-02 17:16
PROVIDERS: ADMIT Internal Medicine; ATTEND Internal Medicine
PROC: 5A1945Z Respiratory Ventilation, 24-96 Consecutive Hours (ICD-10-PCS; principal; 2020-04-16)
PROC: 0BH17EZ Insertion of Endotracheal Airway into Trachea, Via Natural or Artificial Opening (ICD-10-PCS; 2020-04-16)
PROC: 02HV33Z Insertion of Infusion Device into Superior Vena Cava, Percutaneous Approach (ICD-10-PCS; 2020-04-16)
PROC: 0DH673Z Insertion of Infusion Device into Stomach, Via Natural or Artificial Opening (ICD-10-PCS; 2020-04-16)
PROC: 3E033XZ Introduction of Vasopressor into Peripheral Vein, Percutaneous Approach (ICD-10-PCS; 2020-04-16)
DX: J96.01 Acute respiratory failure with hypoxia (principal); A41.9 Sepsis, unspecified organism; J69.0 Pneumonitis due to inhalation of food and vomit; R65.21 Severe sepsis with septic shock; G12.21 Amyotrophic lateral sclerosis; G93.49 Other encephalopathy; E87.3 Alkalosis; J98.11 Atelectasis; I24.8 Other forms of acute ischemic heart disease; J96.02 Acute respiratory failure with hypercapnia; Z20.828 Contact with and (suspected) exposure to other viral communicable diseases; Z51.5 Encounter for palliative care; E11.9 Type 2 diabetes mellitus without complications; R40.2132 Coma scale, eyes open, to sound, at arrival to emergency department; R40.2362 Coma scale, best motor response, obeys commands, at arrival to emergency department; R40.2242 Coma scale, best verbal response, confused conversation, at arrival to emergency department; M54.9 Dorsalgia, unspecified; G89.29 Other chronic pain; D52.9 Folate deficiency anemia, unspecified; F17.210 Nicotine dependence, cigarettes, uncomplicated; J98.6 Disorders of diaphragm; R63.4 Abnormal weight loss; Z68.20 Body mass index [BMI] 20.0-20.9, adult; I69.398 Other sequelae of cerebral infarction; I69.392 Facial weakness following cerebral infarction; Z79.899 Other long term (current) drug therapy
CPT/HCPCS: 31500; 36415; 36416; 70450; 70496; 70498; 71045; 71275; 80048; 80053; 80202; 80306; 80307; 81003; 81015; 82010; 82274; 82553; 82607; 82746; 82805; 83519; 83605; 83690; 83735; 83880; 84443; 84484; 85007; 85025; 85027; 85379; 85610; 85730; 86038; 86225; 86780; 87040; 87086; 93005; 93306; 94002; 94003; 94660; 94760; 96374; J0171; J0692; J1100; J1120; J1650; J1720; J2060; J2543; J2704; J3010; J3370; J3480; J3490; J7050; J7512; Q9967; U0002